=== PATIENT | female | born 1945 | race Caucasian/White ===

== ENCOUNTER → 2020-08-27 08:43 | Outpatient (REF) | payer MEDICARE, OTHER, SELFPAY | LOC: HO.CARD 08:43 | PROVIDERS: Visit Provider Internal Medicine | DX: Z13.89 Encounter for screening for other disorder (principal) ==

== ENCOUNTER → 2020-09-01 07:53 | Outpatient (REF) | payer MEDICARE, OTHER, SELFPAY ==
--- NOTE | 2020-09-01 | NM_ITS ---
Lexiscan Myocardial perfusion study Indication: Chest pain, history of coronary disease, assess for ischemia Technique: The patient was brought in for a Lexiscan perfusion study on 09/01/2020 and was injected 0.4 mg of Lexiscan intravenously. Within a minute of this injection 25 mCi of sestamibi was given intravenously. Images were obtained using the SPECT gamma camera interlaced with the gating device. Images were obtained in supine position. Resting perfusion study was performed on 09/02/2020. Patient was administered 25 mCi of sestamibi intravenously at rest. Images were then obtained in supine position. Total DLP 66mGy-cm. Images were processed with the software and compared side to side in short axis, horizontal long axis and vertical long axis views. Findings: Raw acquisition reviewed. There is intense subdiaphragmatic uptake in the liver as well as intestines. Seen during stress as well as rest. The stress perfusion study is of suboptimal quality due to adjacent subdiaphragmatic uptake. There seems to be diminished tracer uptake along the inferior wall which could be artifactual. There is also diminished tracer uptake in parts of the anterior wall and adjacent apex. EF calculation by gating seems inaccurate. LV cavity is normal in size. The gated study shows normal wall thickening and contraction of segments. Resting study shows slightly diminished tracer uptake along the apical part of inferior wall but otherwise unremarkable. With CT attenuation correction, there is some additional perfusion abnormality noted in the apex and apical anterior wall as well. Likely all artifactual. Gating at rest reveals normal wall motion with ejection fraction at 68%. Overall, due to adjacent subdiaphragmatic uptake, limited image quality. Defects noted are probably artifactual. NM/NM john perf SPECT rest & str Impression: 1. Myocardial perfusion imaging study is of suboptimal quality due to intense subdiaphragmatic uptake. Apparent reversible defect along the inferior wall as well as inferior septum, distal anterior wall could all be artifactual as the gating component shows normal contractility. Less likely to represent true ischemia. Clinically correlate. 2. Gated LVEF is 68% during rest. Gated EF during stress does not appear accurate. 3. Transient ischemic dilatation not present on visual evaluation. EKG component of the stress reported separately.
--- NOTE | 2020-09-01 08:00 | CA_ITS ---
Acquisition Time: 2020-09-01 08:02:49 Total Exercise Time: 00:02:00 Test Indications: Chest Pain Medications: METOPROLOL TRIAMTURINE/HCTZ SYNTHROID ROSUVASTATIN Protocol: LEXISCAN Max HR: 082 BPM 56% of Pred: 146 BPM Max BP: 122/064 mmHG Max Work Load: 1.0 METS Pharmacological stress test using Lexiscan while sitting. Pt. tolerated well, reports mild chest heaviness after lexiscan, that resolves in recovery. EKG with LBBB with v-pacing. non-diagnostic for ischemia. Nuclear images to follow. Normotensiver esponse to test. Test reviewed with Dr. Mahmood. Referred By: Natan Menjivar Overread By: Jese Moody
== END ==
LOC: HO.CARD 07:53
PROVIDERS: PCP Internal Medicine; Visit Provider Internal Medicine
DX: R07.9 Chest pain, unspecified (principal)
CPT/HCPCS: 78452; 93017; A9500; J0280; J2785

== ENCOUNTER → 2020-09-09 14:16 | Outpatient (BNVA) | payer MEDICARE, OTHER, SELFPAY | PROVIDERS: PCP Internal Medicine; Referring Provider Internal Medicine; Visit Provider Internal Medicine | DX: I25.10 Atherosclerotic heart disease of native coronary artery without angina pectoris (principal); R94.5 Abnormal results of liver function studies; R03.0 Elevated blood-pressure reading, without diagnosis of hypertension; Z79.02 Long term (current) use of antithrombotics/antiplatelets; Z95.0 Presence of cardiac pacemaker; Z95.5 Presence of coronary angioplasty implant and graft | CPT/HCPCS: 99212 ==

== ENCOUNTER → 2020-11-24 13:06 | Outpatient (BNVA) | payer MEDICARE, OTHER, SELFPAY | PROVIDERS: PCP Internal Medicine; Referring Provider Internal Medicine; Visit Provider Internal Medicine | DX: Z45.018 Encounter for adjustment and management of other part of cardiac pacemaker (principal); I25.10 Atherosclerotic heart disease of native coronary artery without angina pectoris; R94.5 Abnormal results of liver function studies; R03.0 Elevated blood-pressure reading, without diagnosis of hypertension | CPT/HCPCS: 99212 ==

== ENCOUNTER → 2021-06-30 12:53 | Outpatient (BNVA) | payer MEDICARE, OTHER, SELFPAY | PROVIDERS: PCP Internal Medicine; Referring Provider Internal Medicine; Visit Provider Internal Medicine | DX: Z45.018 Encounter for adjustment and management of other part of cardiac pacemaker (principal); I25.10 Atherosclerotic heart disease of native coronary artery without angina pectoris; I49.8 Other specified cardiac arrhythmias; R03.0 Elevated blood-pressure reading, without diagnosis of hypertension; R94.5 Abnormal results of liver function studies | CPT/HCPCS: 93005; 99212 ==

== ENCOUNTER 2021-09-22 14:05 | Outpatient (REF) | payer MEDICARE, OTHER, SELFPAY | END 2021-09-22 14:06 | disposition home or self-care (01) | LOC: HO.LAB 14:05 | PROVIDERS: PCP Internal Medicine; Visit Provider Internal Medicine | DX: Z20.822 Contact with and (suspected) exposure to COVID-19 (principal) | CPT/HCPCS: C9803; U0003; U0005 ==

== ENCOUNTER → 2022-02-22 13:56 | Outpatient (BNVA) | payer MEDICARE, OTHER, SELFPAY | PROVIDERS: PCP Internal Medicine; Referring Provider Internal Medicine; Visit Provider Internal Medicine | DX: I25.10 Atherosclerotic heart disease of native coronary artery without angina pectoris (principal); I49.8 Other specified cardiac arrhythmias; R94.5 Abnormal results of liver function studies; Z79.82 Long term (current) use of aspirin; Z79.899 Other long term (current) drug therapy; Z45.018 Encounter for adjustment and management of other part of cardiac pacemaker | CPT/HCPCS: 93280; 99212 ==

== ENCOUNTER 2022-05-25 14:17 | Emergency (ER) | payer MEDICARE, OTHER, SELFPAY ==
--- NOTE | ~2022-05-25 | CT_ITS ---
EXAMINATION: CT HEAD WITHOUT CONTRAST CT FACIAL BONES WITHOUT CONTRAST CT CERVICAL SPINE WITHOUT CONTRAST CLINICAL INFORMATION: Fall. Headache. Neck injury. COMPARISON: CT head, facial bones and cervical spine 12/27/2019 TECHNIQUE: Imaging was performed from the skull base to vertex without intravenous administration of contrast. In addition, helical noncontrast CT imaging was acquired through the cervical spine and facial bones and source images were reviewed along with axial reconstructions and sagittal and coronal MPRs. [This CT examination was performed using dose optimization techniques as appropriate, variously including the following: *Automated exposure control *Adjustment of mA and/or kV according to patient size (this includes techniques or standardized protocols for targeted exams where dose is matched to indication/reason for exam; i.e. extremities or head) *Use of iterative reconstruction technique] DLP: 1547 mGy-cm FINDINGS: HEAD: Small left frontal bone scalp hematoma. No skull fracture. No intracranial mass, hemorrhage, or midline shift is visualized. There is generalized global volume loss. There is moderate prominence of the ventricles and the sulci . There is mild hypodensity of the periventricular white matter due to chronic small vessel ischemic disease. There are vascular calcifications of the internal carotid arteries bilaterally. . No extra-axial collections are identified. FACIAL BONES: Comminuted fracture of the nasal bones bilateral. These are slightly displaced. No additional facial bone fracture. Orbits are intact. Retrobulbar structures are normal. Mandible and TMJ joints intact. Small volume of lobular mucosal thickening at the inferior left sphenoid sinus. The paranasal sinuses are otherwise normally aerated. The visualized portion of the mastoid air cells and middle ear cavities are normally aerated CERVICAL SPINE: There is no evidence of acute cervical spine fracture. Vertebral bodies remain normal in height. There is advanced multilevel degenerative spondylosis of disc height narrowing, endplate spurring and facet joint arthrosis. No pre- or paravertebral soft tissue abnormality is identified. Limited assessment of the lung apices is unremarkable. CT/CT cervical spine wo con IMPRESSION: 1. No acute intracranial abnormality. 2. Comminuted fractured nasal bones bilateral. 3. No acute abnormality CT cervical spine.
[2022-05-25 14:20] VITALS: BP 174/74; PULSE 79; RESP 18; TEMP 36.6; O2SAT 97; BMI 25.7
[2022-05-25 14:30] VITALS: BP 171/65; PULSE 75; RESP 18; TEMP 36.6; O2SAT 97
--- NOTE | 2022-05-25 14:53 | PC.NURSE ---
Pt came in with . She was out with her horses when she tripped over a rock and fell on her face. Pt is bleeding from the bridge of her nose and inside of her nose and small abrasion on the top of her forehead. Pt complains of not being able to breathe properly. Pt not on any blood thinners.
--- NOTE | 2022-05-25 15:24 | PC.NURSE ---
While going over assessment, Irem and I cleaned pt with sterile solution where blood from her nose had gotten on her arms and hands.
--- NOTE | 2022-05-25 15:46 | ED_ITS ---
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 Mahmood and abnormal LFTs presenting to the ED with her at bedside after she had a mechanical fall while walking her horses she reports she tripped and fell landing face forward on her face. Since then she has been having some forehead pain/swelling, epistaxis that is now resolved and some left-sided neck pain. She denies prolonged down time or loss of consciousness or being on any blood thinners. She reports that this was mechanical she did not have any symptoms prior to the fall. She denies any dizziness, change in vision, jaw pain, dental injury, neck stiffness, paresthesias, chest pain or injury, back pain or injury, any other extremity or injury, or any other symptoms complaints or concerns at this time. She reports that she is up-to-date on tetanus. 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 Fall witnessed: no Place fall occurred: other (outdoors) Loss of consciousness: none Prolonged down time: no Symptoms prior to fall: none Context: tripped/slipped Location of injury: head, face and neck Severity: moderate Quality: aching Associated symptoms (after fall): headache and other (and epistaxis) Related Data Home Medications Medication Instructions Recorded Confirmed aspirin 81 mg tablet,delayed 81 mg PO DAILY 09/09/20 02/22/22 release ergocalciferol (vitamin D2) 1,250 1,250 mcg PO QWEEK 09/09/20 02/22/22 mcg (50,000 unit) capsule lactobacillus combination no.8 3 3,000 mmu cells PO DAILY 09/09/20 02/22/22 billion cell capsule (Adult Probiotic) levothyroxine 112 mcg tablet 112 mcg PO DAILY 09/09/20 02/22/22 metoprolol succinate 25 mg 12.5 mg PO DAILY 09/09/20 02/22/22 tablet,extended release 24 hr multivitamin 1 tab PO DAILY 09/09/20 02/22/22 rosuvastatin 20 mg tablet 20 mg PO BEDTIME 09/09/20 02/22/22 triamterene 37.5 1 cap PO DAILY 09/09/20 02/22/22 mg-hydrochlorothiazide 25 mg capsule Previous Rx's Medication Instructions Recorded nitroglycerin 0.4 mg sublingual 0.4 mg sublingual Q5M PRN chest 02/22/22 tablet pain 30 days #30 tabs acetaminophen 500 mg tablet 1,000 mg PO QID PRN fever or pain 05/25/22 (Tylenol Extra Strength) #14 tabs oxycodone 5 mg tablet 5 mg PO Q6H PRN pain #14 tabs 05/25/22 Allergies Allergy/AdvReac Type Severity Reaction Status Date / Time latex Allergy Unknown UNK. Verified 05/25/22 14:20 Review of Systems Review of Systems: Constitutional : No Fever, No Chills ENT/Mouth : + epistaxis, No Ear Pain, No Hoarseness, No sore throat Eyes: No Eye Pain, No Swelling, No Redness, No Foreign Body Cardiovascular : No Chest Pain, No SOB Respiratory : No Cough, No Dyspnea Gastrointestinal : No Nausea, No Vomiting, No Diarrhea, No abdominal Pain Genitourinary : No Dysuria, No Hematuria Musculoskeletal : +facial bony pain, + neck pain, No back pain, No other joint pain, No Myalgias, No Joint Swelling Skin : No Skin lacerations, No rash Neuro : + headache, No Weakness, No Numbness, No Paresthesias, No Loss of Consciousness, No Dizziness Psych : No Anxiety/Panic, No Depression Heme/Lymph: no easy bruising, no Lymphadenopathy Endocrine : No Polyuria, No Polydipsia Yes all other systems are reviewed and are negative [facility] Past Medical History Attestation statement: The following information was validated with the patient. Source: old records reviewed, obtained from family and nursing notes reviewed Medical History Abnormal LFTs Atherosclerotic cardiovascular disease Heart block atrioventricular Normally functioning cardiac pacemaker present Surgical History History of permanent cardiac pacemaker placement (~2019) Family History Family History Father Rheumatic fever Mother History of coronary artery bypass graft x 3 History of pacemaker Congestive heart failure Social History Social History Patient Tobacco Use Status: Never used Tobacco Advance Directives: No Advance Directives Information Provided: Yes Physical Exam Vital Signs: Vital Signs: Last Vital Signs Temp 98.1 F 05/25/22 16:00 Pulse 66 05/25/22 16:00 Resp 16 05/25/22 16:00 BP 158/72 H 05/25/22 16:00 Pulse Ox 98 05/25/22 16:00 O2 Del Method 05/25/22 16:00 BMI result Body Mass Index 25.7 vital signs have been reviewed as normal and appeared to be correct. Blood pressure 174/74. Heart rate normal. Respiration rate normal. Temperature normal. Oxygen saturation normal. Appearance: Alert. Oriented X3. No acute distress. Head: Patient with moderate soft tissue swelling and ecchymosis and tenderness palpation to the forehead and the periorbital areas. With superficial abrasions to the forehead. Patient has moderate tenderness palpation to the nasal bone with soft tissue swelling and superficial abrasion. The rest of the external exam is within normal limits. No Rapp signs noted. No raccoon eyes noted Eyes: PERRLA. EOMI. Conjunctiva and sclera normal. Eyelids normal. ENT: EAC normal. TM's Normal. Patient has dried epistaxis to bilateral nares. no active bleeding. No septal hematoma noted. No hemotympanum noted. Pharynx normal. Uvula midline. Moist mucous membranes. No lesions/ulcerations or masses noted on the tongue. Normal voice. No trismus noted. No drooling noted. No muffled voice noted. Neck: Normal inspection. Neck supple. FROM. No adenopathy. Thyroid Normal. No tracheal deviation noted. No crepitus is noted. No meningeal signs. No neck mass noted. No signs of trauma noted. Patient mild tenderness palpation to bilateral paracervical musculature worse on the left side. No mid cervical tenderness step-offs or deformities noted. CVS: Normal heart rate and rhythm. Heart sound normal. Pulses normal throughout. No murmurs/rales/gallops. Respiratory: No respiratory distress. Painless inspiration. Breath sounds normal. No wheezes/rales/rhonchi noted. Chest nontender. No crepitus is noted. No signs of trauma noted. No accessory muscle usage noted or decreased air movement noted. No signs of trauma. Abdomen: Soft and nontender. Bowel sounds normal in all 4 quadrants. No distention noted. No organomegaly noted. No visible injury noted. Back: Full range of motion noted. Nontender. No signs of trauma. Patient neuro intact bilaterally and distally on all 4 extremities. Patient's reflexes intact bilaterally and distally on all 4 extremities. No rashes/lesion/induration/fluctuance or signs of infection noted. Skin: Skin warm and dry. Normal skin color. Normal skin turgor. No rashes/lesions/lacerations noted. Extremities: No lower extremity edema. No calf tenderness is noted. Extremities exhibit normal range of motion and nontender. Neuro: Oriented X 3. No motor deficit. No sensory deficit. Reflexes normal. Normal steady gait. No focal neuro deficits noted. CN's II-XII intact bilaterally? Vascular: + radial pulses/+ 2 distal pedal pulses/+2 dorsalis pedis b/l. Normal cap refill. No cyanosis noted to upper extremity nails and lower extremity toes nails. 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 Mahmood and abnormal LFTs presenting to the ED with her at bedside after she had a mechanical fall while walking her horses she reports she tripped and fell landing face forward on her face. Since then she has been having some forehead pain/swelling, epistaxis that is now resolved and some left-sided neck pain. She denies prolonged down time or loss of consciousness or being on any blood thinners. She reports that this was m echanical she did not have any symptoms prior to the fall. Patient up-to-date on tetanus. Plan: Will obtain a CT scan of brain/cervical spine and facial bones. Provide a Tylenol with codeine and re-evaluate Reevaluation(s) Reevaluation #1: - CT scan of brain revealed small left frontal scalp hematoma otherwise no other acute processes noted. CT scan of cervical spine within normal limits no acute processes noted only chronic changes. CT scan of facial bones revealed comminuted fracture of nasal bones bilaterally which are slightly displaced otherwise no other acute processes are noted. Therefore at this time will DC home with symptomatic treatment and referral to Dr. Cunha the ear nose and throat doctor and to return if any new or worsening symptoms and to follow up with PCP. Patient understands agrees with this plan. Time: 17:28 MDM - Fall Medical Records Attestation: I reviewed the patient's medical records. Imaging Data CT scan of brain/cervical spine/facial bones without contrast: Attestation: I personally reviewed and interpreted this imaging study as follows: Radiologist's impression: FINDINGS: HEAD: Small left frontal bone scalp hematoma. No skull fracture. No intracranial mass, hemorrhage, or midline shift is visualized. There is generalized global volume loss. There is moderate prominence of the ventricles and the sulci . There is mild hypodensity of the periventricular white matter due to chronic small vessel ischemic disease. There are vascular calcifications of the internal carotid arteries bilaterally. . No extra-axial collections are identified. FACIAL BONES: Comminuted fracture of the nasal bones bilateral. These are slightly displaced. No additional facial bone fracture. Orbits are intact. Retrobulbar structures are normal. Mandible and TMJ joints intact. Small volume of lobular mucosal thickening at the inferior left sphenoid sinus. The paranasal sinuses are otherwise normally aerated. The visualized portion of the mastoid air cells and middle ear cavities are normally aerated CERVICAL SPINE: There is no evidence of acute cervical spine fracture. Vertebral bodies remain normal in height. There is advanced multilevel degenerative spondylosis of disc height narrowing, endplate spurring and facet joint arthrosis. No pre- or paravertebral soft tissue abnormality is identified. Limited assessment of the lung apices is unremarkable. CT/CT facial bones wo con IMPRESSION: ? 1. No acute intracranial abnormality. 2. Comminuted fractured nasal bones bilateral. 3. No acute abnormality CT cervical spine. Discharge Plan Discharge Clinical Impression: Fall, Epistaxis, Facial injury, Closed fracture nasal bone Patient Disposition: Home, Self-Care Instructions: Nasal Fracture (ED), Nosebleed (ED) Prescriptions: New acetaminophen [Tylenol Extra Strength] 500 mg tablet 1,000 mg PO QID PRN (Reason: fever or pain) Qty: 14 0RF oxycodone 5 mg tablet 5 mg PO Q6H PRN (Reason: pain) Qty: 14 0RF Rx Instructions: Partial Fill upon patient request. No Action nitroglycerin 0.4 mg tablet, sublingual 0.4 mg sublingual Q5M PRN (Reason: chest pain) 30 Days Qty: 30 5RF Rx Instructions: do not exceed 3 doses per episode rosuvastatin 20 mg tablet 20 mg PO BEDTIME ergocalciferol (vitamin D2) 1,250 mcg (50,000 unit) capsule 1,250 mcg PO QWEEK metoprolol succinate 25 mg tablet extended release 24 hr 12.5 mg PO DAILY levothyroxine 112 mcg tablet 112 mcg PO DAILY triamterene-hydrochlorothiazid 37.5-25 mg capsule 1 cap PO DAILY aspirin 81 mg tablet,delayed release (DR/EC) 81 mg PO DAILY Adult Probiotic 3 billion cell capsule 3,000 mmu cells PO DAILY Rx Instructions: administer with a meal multivitamin Tablet 1 tab PO DAILY Referrals: Natan Menjivar MD [Primary Care Provider] - 5 days Chuy Patel [Physician] - 5 days (Call to make a follow-up appointment)
[2022-05-25 16:00] VITALS: BP 158/72; PULSE 66; RESP 16; TEMP 36.7; O2SAT 98
--- NOTE | 2022-05-25 16:27 | PC.NURSE ---
administered PRN med per MAR and according to patient with pain level of 6
== END 2022-05-25 17:50 | disposition home or self-care (01) ==
PROVIDERS: Emergency Provider Emergency Medicine; PCP Internal Medicine
DX: R04.0 Epistaxis (principal); S02.2XXA Fracture of nasal bones, initial encounter for closed fracture; W01.0XXA Fall on same level from slipping, tripping and stumbling without subsequent striking against object, initial encounter; S00.83XA Contusion of other part of head, initial encounter; Y93.K1 Activity, walking an animal; Y92.73 Farm field as the place of occurrence of the external cause; Y99.9 Unspecified external cause status
CPT/HCPCS: 70450; 70486; 72125; 99284

== ENCOUNTER 2022-06-03 15:54 | Outpatient (REF) | payer MEDICARE, OTHER, SELFPAY ==
--- NOTE | ~2022-06-03 | CT_ITS ---
EXAMINATION: CT HEAD WITHOUT CONTRAST CLINICAL INFORMATION: Headache after fall COMPARISON: Previous head CT most recent May 2022 TECHNIQUE: Contiguous axial imaging was performed from the skull base to vertex without intravenous administration of contrast. This CT examination was performed using dose optimization techniques as appropriate, variously including the following: *Automated exposure control *Adjustment of mA and/or kV according to patient size (this includes techniques or standardized protocols for targeted exams where dose is matched to indication/reason for exam; i.e. extremities or head) *Use of iterative reconstruction technique DLP: 717 mGy-cm FINDINGS: There is no evidence of an extra-axial collection. There is no evidence of intra-axial or extra-axial hemorrhage. The ventricles and extra-axial CSF spaces are appropriate. There is nonspecific periventricular white matter disease. There are small old bilateral basal ganglia lacunar infarcts that appear unchanged. No mass, mass effect or acute infarct is seen. There is evidence of atherosclerotic disease. No skull fracture is seen. There are bilateral nasal bone fractures that appear unchanged. Paranasal sinuses, mastoid air cells and middle ears are clear. CT/CT head/brain wo con IMPRESSION: No acute findings. Nonspecific periventricular white matter disease, old right basal ganglia lacunar infarcts and bilateral nasal bone fractures similar to previous exam.
== END 2022-06-03 15:55 | disposition home or self-care (01) ==
LOC: HO.CT 15:54
PROVIDERS: PCP Internal Medicine; Visit Provider Internal Medicine
DX: R51.9 Headache, unspecified (principal); Z91.81 History of falling
CPT/HCPCS: 70450

== ENCOUNTER → 2022-08-17 08:35 | Outpatient (REF) | payer MEDICARE, OTHER, SELFPAY ==
--- NOTE | 2022-08-17 08:38 | CA_ITS ---
Transthoracic Echocardiogram Patient (Last, First, Middle): Denice Pérez E Gender: Female Date of : 1945 Age: 77 Procedure Date: 08/17/2022 Procedure Type: Transthoracic Echocardiogram Location: OP Height: 162.56 cm Weight: 68.04 kg BSA: 1.73 m2 Heart Rate: bpm BP: 130 / 70 mmHg Administrative Specialist: TO Referring MD: Keegan Mahmood MD Symptoms: I25.10 - Atherosclerotic heart disease of [place] coronary... Study Quality: Fair Conclusions: - 1. Normal LV systolic function with impaired relaxation filling pattern 2. Mild mitral regurgitation 3. Normal RV systolic pressure 4. No gross pericardial effusion Findings Left Ventricle Normal left ventricular size, thickness, and systolic function. The visually estimated ejection fraction is between 60-65%. There is paradoxical septal motion consistent with a right ventricular pacemaker. Spectral Doppler is indicative of an impaired relaxation filling pattern. E/E prime ratio is between 8 and 15 consistent with indeterminate filling pressures. Right Ventricle Normal right ventricular cavity size and systolic function. There is a pacemaker wire seen in the right ventricle. Atria The left atrium is normal in size. There is no evidence of interatrial shunt. The right atrium is normal in size. A pacemaker wire is identified in the right atrium. Aortic Valve The aortic valve structure and function is likely normal. There is mild aortic valve stenosis. There is no aortic valve regurgitation. Mitral Valve There is mild anterior and posterior mitral leaflet thickening. There is trace mitral valve regurgitation. There is no mitral valve stenosis. Pulmonic Valve The pulmonic valve was not well visualized. Tricuspid Valve Likely normal tricuspid valve structure and function. There is trace tricuspid valve regurgitation. The right ventricular systolic pressure is normal. The right ventricular systolic pressure is 22 mmHg. Normal right atrial pressure. There is no evidence of pulmonary hypertension. Great Vessels All visible segments of the aorta are normal in size. The pulmonary artery was not well visualized. Venous The inferior vena cava is normal in size and collapses greater than 50% with inspiration. Pericardium/Pleural There is no evidence of pericardial effusion. Prior Study Comparison No significant change compared to prior study dated: 05/30/2019. Measurements 2D Linear Measurements IVSd: 1.13 0.6-0.9/0.6-1.0 cm LVIDd: 3.60 3.9-5.3/4.2-5.9 cm LVIDd Index: 2.08 2.4-3.2/2.2-3.1 cm/m2 LVIDs: 2.08 2.0-3.6 cm LVPWd: 1.15 0.7-1.1 cm LA Diam: 3.30 2.7-3.8/3.0-4.0 cm LAIDs Index: 1.91 1.5-2.3 cm/m2 LV Mass: 173.88 67-162/88-224 g LV Mass Index: 100.51 43-95/49-115 g/m2 LVOT Diam: 2.00 3.0+(-)1.3 cm 2D Systolic Function EF 4C: 62.20 >55% EF 2C: 61.70 >55% EF BiP: 62.10 >55% Mitral Valve MV Pk E: 0.40 MV PK A: 0.70 MV Decel Time: 244.00 E/A: 0.60 E'Lateral: 5.44 E'Medial: 4.90 E/E' Med: 8.20 E/E' Lat: 7.40 PHT: 72.00 MVA PHT: 3.06 Decel [place]: 1.65 Aortic Valve AoV Pk Stephon: 1.15 AoV Mn Stephon: 0.83 AoV VTI: 0.23 AoV Pk Grad: 5.00 Aov Mn Grad: 3.00 TIARRA Cont.VTI: 2.51 LVOT LVOT Pk Stephon: 0.80 LVOT Mn Stephon: 0.51 LVOT VTI: 0.18 LVOT Pk Grad: 3.00 LVOT Mn Grad: 1.00 LVOT Diam: 2.00 LVOT Area: 3.14 Diastolic Function MV Pk E: 0.40 MV Pk A: 0.70 E/A: 0.60 E'Medial: 4.90 E/E' Med: 8.20 E' Laterial: 5.44 E/E' Lat: 7.40 Right Ventricle TAPSE (mm): 23.20 TVS' Stephon: 13.30 Tricuspid Valve TR Pk Stephon: 2.19 TR Pk Grad: 19.00 RA Press: 3.00 RVSP: 22.00 Great Vessels Aorta Sinus of Valsalva: 3.38 2.0-3.5 cm Ao Asc: 3.10 2.1-3.4 cm Updated in Other Vendor System with Status of Final Raheem Amin MD electronically signed on 08/18/2022 3:58:29 PM with status of Final
== END ==
LOC: HO.CARD 08:35
PROVIDERS: PCP Internal Medicine; Visit Provider Internal Medicine
DX: I25.10 Atherosclerotic heart disease of native coronary artery without angina pectoris (principal)
CPT/HCPCS: 93306

== ENCOUNTER → 2022-08-30 11:33 | Outpatient (BNVA) | payer MEDICARE, OTHER, SELFPAY | PROVIDERS: PCP Internal Medicine; Visit Provider Internal Medicine | DX: Z45.018 Encounter for adjustment and management of other part of cardiac pacemaker (principal); I44.30 Unspecified atrioventricular block | CPT/HCPCS: 93280 ==

== ENCOUNTER → 2022-09-09 09:04 | Outpatient (BNVA) | payer MEDICARE, OTHER, SELFPAY | PROVIDERS: PCP Internal Medicine; Referring Provider Internal Medicine; Visit Provider Internal Medicine | DX: I25.10 Atherosclerotic heart disease of native coronary artery without angina pectoris (principal); I49.8 Other specified cardiac arrhythmias; I10 Essential (primary) hypertension; R94.5 Abnormal results of liver function studies | CPT/HCPCS: 93005; 99212 ==

== ENCOUNTER 2022-09-28 13:32 | Outpatient (REF) | payer MEDICARE, OTHER, SELFPAY ==
--- NOTE | ~2022-09-28 | CT_ITS ---
EXAMINATION: CT HEAD WITHOUT CONTRAST CT FACE WITHOUT CONTRAST CT CERVICAL SPINE WITHOUT CONTRAST. CLINICAL INFORMATION: Worsening nose pain. History of fall with headache. COMPARISON: CT scan of the head, face, and cervical spine 05/25/2022. CT head 06/03/2022. TECHNIQUE: Certified Recreational Therapist images were obtained. CT imaging of the head, face, and cervical spine was performed without contrast. Data was reformatted into multiplanar images at the acquisition station. This CT examination was performed using dose optimization techniques as appropriate, including one or more of the following: Automated exposure control, iterative reconstruction, and adjustment of technique factors (mA and/or kVp) according to patient size (this includes techniques or standardized protocols for targeted exams where dose is matched to indication/reason for exam). Fleischner Society criteria for the followup of incidental pulmonary nodules was implemented if appropriate. DLP: 1219 mGy-cm. FINDINGS: Head: There is no acute intracranial hemorrhage or abnormal extra-axial collection. No intracranial mass effect or midline shift. No hydrocephalus. Scattered nonspecific foci of hypoattenuation visualized within the periventricular white matter and basal ganglia that most likely represent a chronic manifestation of small vessel ischemia. Gregorio-white matter differentiation is otherwise preserved and there is no evidence of acute territorial infarct. The calvarium and skull base are intact. Mastoid air cells and middle ear cavities are well aerated. Face: There are healing nasal bone fractures. Soft tissue swelling has substantially improved. The zygomatic arches and pterygoid processes are intact. There is no mandibular fracture. The temporomandibular joints are unremarkable. Globes and extraocular muscles are symmetric. No abnormal retrobulbar hematoma or inflammation. Orbital apices are unremarkable. There is mild mucosal thickening with associated sclerotic mucoperiosteal changes within the sphenoid sinus. Otherwise no active paranasal sinus disease. The nasal septum deviates to the left. 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 There is mineralization of the transverse ligament and considerable thickening of the retrodental soft tissues causing AP narrowing of the canal the level of C1. Bridging bone fuses the vertebral segments at C2-C3 and C6-C7. There is slight anterolisthesis of C4 on C5, C5 on C6, and C6 on C7. Canal patency is not well assessed on this examination due to inherent limitations of CT without intrathecal contrast. There is at least mild canal stenosis at the level of C5-C6. There are varying degrees of neuroforaminal encroachment related to uncovertebral joint spurring and facet degenerative change at multiple levels. Soft tissues of the neck are unremarkable. Lung apices are clear. Grossly no pathologically enlarged cervical lymph nodes. CT/CT head/brain wo IV con IMPRESSION: Head: No acute intracranial hemorrhage. There are scattered chronic small vessel ischemic changes within the periventricular white matter and basal ganglia. No evidence of acute territorial infarct. Facial: There are healing nasal bone fractures. Soft tissue swelling has substantially improved. No acute facial fracture. Cervical Spine: No evidence of acute cervical spinal fracture. There is advanced multilevel degenerative spondylosis of the cervical spine with slight anterolisthesis of C4 on C5, C5 on C6, and C6 on C7. 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 There is thickening of the retrodental tissues causes flattening of the thecal sac the level of C1. Canal patency is not well assessed on this examination due to inherent limitations of CT without intrathecal contrast. There is at least mild canal stenosis at the level of C5-C6. If there are clinical symptoms of compressive myelopathy then a dedicated cervical spine MRI can be obtained for better anatomic characterization of the cord and canal.
== END 2022-09-28 13:33 | disposition home or self-care (01) ==
LOC: HO.CT 13:32
PROVIDERS: PCP Internal Medicine; Visit Provider Internal Medicine
DX: G50.1 Atypical facial pain (principal); M54.2 Cervicalgia; R51.9 Headache, unspecified
CPT/HCPCS: 70450; 70486; 72125

== ENCOUNTER 2022-12-23 10:54 | Outpatient (REF) | payer MEDICARE, OTHER, SELFPAY ==
--- NOTE | ~2022-12-23 | MR_ITS ---
EXAMINATION: MR BRAIN WITHOUT CONTRAST CLINICAL INFORMATION: Headache, status post trauma COMPARISON: CT head without contrast 09/28/2022 TECHNIQUE: Multiplanar multisequence MR imaging of the brain was obtained without intravenous contrast. FINDINGS: There is no acute infarct on diffusion-weighted imaging. There is no intracranial hemorrhage on iron-sensitive imaging. No extra-axial collection or mass effect/herniation. Scattered periventricular and deep white matter T2 FLAIR hyperintensities consistent with mild underlying microangiopathy. Chronic lacunar infarct along the right anterior limb of the internal capsule. No hydrocephalus. Mild generalized cerebral volume loss with commensurate sulcal and ventricular prominence. 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 The major flow voids at the skull base are preserved. The midline structures are normal. The cerebellar tonsils are normally positioned. The craniocervical junction is normal. Moderate to advanced degenerative changes of the upper cervical spine including arthrosis of the atlantodental interval and retrodental pannus which results in suspected moderate narrowing of the spinal canal at C1-C2. Marrow signal is within normal limits. The visualized soft tissues are without significant abnormality. No signal abnormality within the paranasal sinuses or within the mastoid air cells. MR/MR head/brain wo con IMPRESSION: 1. No acute intracranial abnormality. 2. Mild generalized volume loss and chronic microangiopathy 3. Incompletely evaluated moderate to advanced degenerative changes of the upper cervical spine including retrodental pannus which results in suspected moderate spinal canal stenosis at C1-C2.
== END 2022-12-23 10:55 | disposition home or self-care (01) ==
LOC: HO.MRI 10:54
PROVIDERS: PCP Internal Medicine; Visit Provider Internal Medicine
DX: F07.0 Personality change due to known physiological condition (principal)
CPT/HCPCS: 70551

== ENCOUNTER → 2023-02-21 12:35 | Outpatient (BNVA) | payer MEDICARE, OTHER, SELFPAY | PROVIDERS: PCP Internal Medicine; Referring Provider Internal Medicine; Visit Provider Internal Medicine | DX: Z45.018 Encounter for adjustment and management of other part of cardiac pacemaker (principal); I25.10 Atherosclerotic heart disease of native coronary artery without angina pectoris; I49.8 Other specified cardiac arrhythmias; I10 Essential (primary) hypertension; R94.5 Abnormal results of liver function studies | CPT/HCPCS: 93280; 99212 ==

== ENCOUNTER → 2023-05-02 23:59 | Outpatient (BNV) | payer MEDICARE, OTHER, SELFPAY ==
--- NOTE | 2023-05-04 14:02 | A.OFFVIS_ITS ---
Intake Intake Visit Reasons: Remote Device Check- [facility] Allergies latex Allergy (Unknown, Verified 02/21/23 12:57) UNK. 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 Normally functioning cardiac pacemaker present Surgical History History of permanent cardiac pacemaker placement (~2019) Family History Father Rheumatic fever Mother History of coronary artery bypass graft x 3 History of pacemaker Congestive heart failure Social History (Updated 02/21/23 @ 12:59 by Laura Green) Alcohol intake: current Alcohol intake frequency: holidays/special occasions only Patient Tobacco Use Status: Never used Tobacco Office Procedures Cardiac Device Check Cardiac Device Check Details: Date of service- 05/02/2023 ; Battery life >5 years; normal lead parameters; AP 15%; 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 Overall normal device function. [id number] Cardiac Device Interrogation, pacemaker Procedure code (CPT) selection complete Assessment & Plan Assessment & Plan (1) Heart block atrioventricular: Code(s): I44.30 - Unspecified atrioventricular block Coding Level of Care Code Procedure Only Diagnoses Heart block atrioventricular I44.30 CPT Codes Cardiac Device Check - Cardiac Device 12: [id number] Cardiac Device Interro gation, pacemaker ([id number])
== END ==
PROVIDERS: PCP Internal Medicine; Visit Provider Internal Medicine
DX: I44.30 Unspecified atrioventricular block (principal); Z95.0 Presence of cardiac pacemaker
CPT/HCPCS: 93294

== ENCOUNTER → 2023-08-01 23:59 | Outpatient (BNV) | payer MEDICARE, OTHER, SELFPAY ==
--- NOTE | 2023-08-03 08:44 | MHC.OFFVIS ---
Intake Intake Visit Reasons: Remote Device Check- [facility] Allergies latex Allergy (Unknown, Verified 02/21/23 12:57) UNK. [facility] Medical History Abnormal LFTs Atherosclerotic cardiovascular disease Heart block atrioventricular Normally functioning cardiac pacemaker present Surgical History History of permanent cardiac pacemaker placement (~2019) Family History Father Rheumatic fever Mother History of coronary artery bypass graft x 3 History of pacemaker Congestive heart failure Social History (Updated 02/21/23 @ 12:59 by Laura Green) Alcohol intake: current Alcohol intake frequency: holidays/special occasions only Patient Tobacco Use Status: Never used Tobacco Office Procedures Cardiac Device Check Cardiac Device Check Details: Date of service- 08/01/2023 ; Battery life >5 years; normal lead parameters; AP 21%; 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 Overall normal device function. [id number] Cardiac Device Interrogation, pacemaker Procedure code (CPT) selection complete Assessment & Plan Assessment & Plan (1) Heart block atrioventricular: Code(s): I44.30 - Unspecified atrioventricular block Coding Level of Care Code Procedure Only Diagnoses Heart block atrioventricular I44.30 CPT Codes Cardiac Device Check - Cardiac Device 12: [id number] Cardiac Device Interrogation, pacemaker ([id number])
== END ==
PROVIDERS: PCP Internal Medicine; Visit Provider Internal Medicine
DX: I44.30 Unspecified atrioventricular block (principal); Z95.0 Presence of cardiac pacemaker
CPT/HCPCS: 93294

== ENCOUNTER 2023-09-25 12:46 | Emergency (ER) | payer MEDICARE, OTHER, SELFPAY ==
[2023-09-25 13:07] VITALS: BP 155/62; PULSE 55; RESP 18; TEMP 36.6; O2SAT 98; BMI 26.9
--- NOTE | 2023-09-25 13:10 | ED_ITS ---
HPI - General Adult General Chief complaint: Animal Bite Stated complaint: Dog bite Time Seen by Provider: 09/25/23 13:20 Source: patient Mode of arrival: ambulatory Limitations: no limitations History of Present Illness HPI narrative: 78old female with pmh of HTN, heart block, pacemaker presents to the ED for dog bite to left arm by her dog she was playing. patient states her dog is uptodate with rabies vaccine. patient states bite is deep and keeps on bleeding Related Data Home Medications Medication Instructions Recorded Confirmed aspirin 81 mg tablet,delayed 81 mg PO DAILY 09/09/20 02/21/23 release ergocalciferol (vitamin D2) 1,250 1,250 mcg PO QWEEK 09/09/20 02/21/23 mcg (50,000 unit) capsule lactobacillus combination no.8 3 3,000 mmu cells PO DAILY 09/09/20 02/21/23 billion cell capsule (Adult Probiotic) levothyroxine 112 mcg tablet 112 mcg PO DAILY 09/09/20 02/21/23 metoprolol succinate 25 mg 12.5 mg PO DAILY 09/09/20 02/21/23 tablet,extended release 24 hr multivitamin 1 tab PO DAILY 09/09/20 02/21/23 rosuvastatin 20 mg tablet 20 mg PO BEDTIME 09/09/20 02/21/23 triamterene 37.5 1 cap PO DAILY 09/09/20 02/21/23 mg-hydrochlorothiazide 25 mg capsule Previous Rx's Medication Instructions Recorded nitroglycerin 0.4 mg sublingual 0.4 mg sublingual Q5M PRN chest 02/22/22 tablet pain 30 days #30 tabs acetaminophen 500 mg tablet 1,000 mg (2 x 500 mg) PO QID PRN 05/25/22 (Tylenol Extra Strength) fever or pain #14 tabs oxycodone 5 mg tablet 5 mg PO Q6H PRN pain #14 tabs 05/25/22 amoxicillin 875 mg-potassium 1 tab PO Q12H 10 days #20 tabs 09/25/23 clavulanate 125 mg tablet Allergies Allergy/AdvReac Type Severity Reaction Status Date / Time latex Allergy Unknown UNK. 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 Normally functioning cardiac pacemaker present Surgical History History of permanent cardiac pacemaker placement (~2019) Family History Family History Father Rheumatic fever Mother History of coronary artery bypass graft x 3 History of pacemaker Congestive heart failure Social History Social History (Updated 02/21/23 @ 12:59 by Laura Green) Alcohol intake: current Alcohol intake frequency: holidays/special occasions only Patient Tobacco Use Status: Never used Tobacco Advance Directives: No Advance Directives Information Provided: No Physical Exam ED Vital Signs: Vital Signs - 24 hr 09/25/23 13:07 Temperature 98 F Pulse Rate 55 Respiratory Rate 18 Blood Pressure 155/62 H Pulse Oximetry 98 Oxygen Delivery Method Room Air BMI result Body Mass Index 26.9 Const General: cooperative, healthy appearing, comfortable, no acute distress, well developed, alert and awake Orientation/consciousness: oriented to person, oriented to place, oriented to time and patient oriented x3 HENIA Head: Yes normal to inspection, Yes No palpable skull fracture present, Yes normocephalic and Yes atraumatic Eyes General: appearance normal, both eyes and all related structures Neck Neck: Yes normal visual inspection, Yes full ROM, Yes no lymphadenopathy, Yes no meningeal signs, Yes trachea midline, Yes supple, No anterior neck swelling and No tender Chest Chest palpation & inspection: normal inspection of the chest and normal palpation of entire chest wall Resp Effort & Inspection: normal respiratory effort and able to speak in complete sentences Auscultation: clear to auscultation bilaterally Cardio Jugular venous distension: no JVD Heart sounds: S1 normal heart sound present and S2 normal heart sound present GI Inspection: Yes normal to inspection Palpation (GI): Soft to palpation, not firm, nontender, no guarding and not rigid General: Yes no CVA tenderness Back/Spine/Pelvis Back: no CVA tenderness and No back tenderness Skin General skin exam: no rashes or lesions noted and elasticity normal Neuro General: oriented to person, oriented to place, oriented to time, patient oriented x3, gait normal, tone normal, moves all extremities, Normal light touch and pain sensation, no meningeal signs and no focal motor deficits Extrem General: Yes normal to inspection and Yes full ROM Shoulder/upper arm images: 2 1. positive for gaping deep hole from dog bite with active bleeding. motor/neuro/vascular exam of extremity is intact. Psych Appearance: grossly normal, well kempt and not disheveled Course Course Course Narrative: RME: 78 yold female with dog bite to arm by her dog who is uptodate with tetanus. Medications Administered Discontinued Medications Generic Name Dose Route Start Last Admin Trade Name Frefederico PRN Reason Stop Dose Admin Diphtheria/Tetanus/Acell Pertussis 0.5 ml 09/25/23 13:10 09/25/23 13:55 Diphth,Pertus(Acell),Tet Adult 0.5 Ml Syringe IM 09/25/23 13:11 0.5 ml .ONCE ONE Administration Lidocaine HCl 2 ml 09/25/23 13:37 09/25/23 13:57 Lidocaine Hcl 2% 2 Ml Vial INFILTRATI 09/25/23 13:38 2 ml ONCE ONE Administration Lidocaine HCl 2 ml 09/25/23 13:37 09/25/23 13:57 Lidocaine Hcl 2% 2 Ml Vial INFILTRATI 09/25/23 13:38 2 ml ONCE ONE Administration Lidocaine HCl 2 ml 09/25/23 13:37 09/25/23 13:57 Lidocaine Hcl 2% 2 Ml Vial INFILTRATI 09/25/23 13:38 2 ml ONCE ONE Administration Medical Decision Making Medical Decision Making MDM Narrative: 78 yold female with dog bite to posterior biceps. cleaned wound with sterile saline and beta iodine. 4 nylon. loose sutures placed. Sutures placed due to depth of gaping hole in arm. REst of extremity normal. patient started on antibiotics. No need for rabies shots. tdap ordered. Differential Diagnosis Differential Diagnoses: The differential diagnosis associated with the presentation includes (dog bite) External Record Review External record reviewed: Other (prior viist) Prescription Management I considered prescription management with: Antibiotic Discharge Plan Discharge Clinical Impression: Dog bite Patient Disposition: Home, Self-Care Instructions: Animal Bite (ED) Additional Instructions: Return to the ED immediately for any redness, swelling, pus discharge, foul odor, red streaks, fever, chills, or any other concerning symptsom. . Please be compliant with the antibiotics. Please follow-up with your primary care provider. Return to the ED in 10 days for suture removal. Prescriptions: New amoxicillin-pot clavulanate 875-125 mg tablet 1 tab PO Q12H 10 Days Qty: 20 0RF No Action acetaminophen [Tylenol Extra Strength] 500 mg tablet 1,000 mg PO QID PRN (Reason: fever or pain) Qty: 14 0RF oxycodone 5 mg tablet 5 mg PO Q6H PRN (Reason: pain) Qty: 14 0RF Rx Instructions: Partial Fill upon patient request. nitroglycerin 0.4 mg tablet, sublingual 0.4 mg sublingual Q5M PRN (Reason: chest pain) 30 Days Qty: 30 5RF Rx Instructions: do not exceed 3 doses per episode rosuvastatin 20 mg tablet 20 mg PO BEDTIME ergocalciferol (vitamin D2) 1,250 mcg (50,000 unit) capsule 1,250 mcg PO QWEEK metoprolol succinate 25 mg tablet extended release 24 hr 12.5 mg PO DAILY levothyroxine 112 mcg tablet 112 mcg PO DAILY triamterene-hydrochlorothiazid 37.5-25 mg capsule 1 cap PO DAILY aspirin 81 mg tablet,delayed release (DR/EC) 81 mg PO DAILY Adult Probiotic 3 billion cell capsule 3,000 mmu cells PO DAILY Rx Instructions: administer with a meal multivitamin Tablet 1 tab PO DAILY Interventions: ED Discharge Assessment Last Done: 09/25/23 15:08 Discharge Date/Time: 09/25/23 15:08 Print Language: Irish
[2023-09-25] MEDS: Diphth,Pertus(ACell),Tet Adult 0.5 ML SYRINGE IM (13:55)
== END 2023-09-25 15:08 | disposition home or self-care (01) ==
PROVIDERS: Emergency Provider Emergency Medicine; PCP Internal Medicine
DX: S41.152A Open bite of left upper arm, initial encounter (principal); W54.0XXA Bitten by dog, initial encounter; Y93.9 Activity, unspecified; Y92.9 Unspecified place or not applicable; Y99.9 Unspecified external cause status; Z23 Encounter for immunization
CPT/HCPCS: 12001; 90471; 90715; 99284

== ENCOUNTER 2023-09-29 14:37 | Outpatient (AMB) | payer MEDICARE, OTHER, SELFPAY ==
--- NOTE | 2023-09-29 14:41 | MHC.OFFVIS ---
Intake Vital Signs 09/29/23 14:44 Height 5 ft 4 in Weight 153 lb 0.013 oz BMI 26.3 BP 126/66 Blood Pressure Location Rt brachial Position Sitting Pulse 58 Intake Visit Reasons: 6 month follow up Intake Note: 6 month follow up w. EKG Lime Hide Inspector Required: No Accompanied by: Self / Same As Patient Allergies latex Allergy (Unknown, Verified 09/29/23 14:45) UNK. Medication List - Last Reconciled 09/29/23 by Keegan Mahmood MD acetaminophen (Tylenol Extra Strength) 1,000 mg (2 x 500 mg) PO QID PRN amoxicillin-pot clavulanate 875-125 mg 1 tab PO Q12H 10 days aspirin 81 mg PO DAILY ergocalciferol (vitamin D2) 1,250 mcg PO QWEEK lactobacillus combination no.8 (Adult Probiotic) 3,000 mmu cells PO DAILY levothyroxine 112 mcg PO DAILY metoprolol succinate ER 12.5 mg PO DAILY multivitamin 1 tab PO DAILY nitroglycerin 0.4 mg sublingual Q5M PRN 30 days rosuvastatin 20 mg PO BEDTIME triamterene-hydrochlorothiazid 37.5-25 mg 1 cap PO DAILY HPI HPI Comments History of Present Illness Details Denice returns for follow-up regarding coronary disease as well as her pacemaker. 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 Then underwent LAD stenting in 2019 following complaints of chest tightness. For the most part she is doing good. On 1 occasion, she had some chest discomfort, brief duration. Took sublingual nitroglycerin then resolved completely. Could be angina. Then no recurrence. Otherwise, able to do physical activity with no issues. Takes triamterene / HCTZ for edema. 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 Normally functioning cardiac pacemaker present Surgical History History of permanent cardiac pacemaker placement (~2019) Family History Father Rheumatic fever Mother History of coronary artery bypass graft x 3 History of pacemaker Congestive heart failure Social History Alcohol intake: current Alcohol intake frequency: holidays/special occasions only Patient Tobacco Use Status: Never used Tobacco Review of Systems Const Denies weakness ENT Denies dizziness Card Denies chest pain, Denies chest pain with activity, Denies syncope, Denies rapid heart rate, Denies pedal edema, Denies edema, Denies leg edema, Denies lightheadedness, Denies palpitations, Denies dyspnea, Denies dyspnea on exertion and Denies orthopnea Resp Denies cough, Denies dyspnea and Denies dyspnea on exertion GI Denies hematochezia and Denies change in stool character Musc Denies abnormal gait, Denies muscle cramps, Denies muscle weakness, Denies numbness, Denies radiating pain into limb and Denies tingling Neuro Denies abnormal gait, Denies dizziness, Denies syncope, Denies numbness, Denies tingling and Denies weakness Endo Denies palpitations Physical Exam Vital Signs: Last Vital Signs Pulse 58 09/29/23 14:44 BP 126/66 09/29/23 14:44 BMI result Body Mass Index 26.3 Const General: comfortable and no acute distress Orientation/consciousness: patient oriented x3 HEENT Other: Unremarkable Head: Yes normal to inspection Neck Neck: Yes normal visual inspection Chest Chest palpation & inspection: normal inspection of the chest Resp Auscultation: clear to auscultation bilaterally Cardio Palpation: normal PMI Heart sounds: S1 normal heart sound present, S2 normal heart sound present, no gallops, no murmurs and no rubs GI Palpation (GI): Soft to palpation Back/Spine/Pelvis Other: unremarkable Skin General skin exam: no rashes or lesions noted Neuro General: patient oriented x3 Extrem General: Yes normal to inspection Psych Mental Status: mental status grossly normal Office Procedures EKG Details: EKG with atrial sensed, ventricular paced rhythm at 58/Min. [id number], Complete Assessment & Plan Assessment & Plan (1) Atherosclerotic cardiovascular disease: Code(s): I25.10 - Atherosclerotic heart disease of [place] coronary artery without angina pectoris Plan: Status post LAD stenting. Very rare chest pains. She remains on aspirin, low-dose beta-blockers and statins. No changes. Last LDL 58 mg/dL. (2) Atrial arrhythmia: Code(s): I49.8 - Other specified cardiac arrhythmias Plan: Brief atrial fibrillation noted on pacemaker remote monitoring in the past for about 32 seconds. No recurrence. (3) Essential hypertension: Code(s): I10 - Essential (primary) hypertension Plan: Stable. No changes. Plan Total time spent including review of data, counseling, documentation, coordination of care-31 minutes. Coding Level of Care Code Est Pt Level 4 (69601) Diagnoses Atherosclerotic cardiovascular disease I25.10 Atrial arrhythmia I49.8 Essential hypertension I10 CPT Codes EKG - CPT: 66707-[id number], Complete ([id number])
[2023-09-29 14:44] VITALS: BP 126/66; PULSE 58; BMI 26.3
== END 2023-09-29 15:34 | disposition home or self-care (01) ==
PROVIDERS: PCP Internal Medicine; Visit Provider Internal Medicine
DX: I25.10 Atherosclerotic heart disease of native coronary artery without angina pectoris (principal); I49.8 Other specified cardiac arrhythmias; I10 Essential (primary) hypertension
CPT/HCPCS: 93010; 99214

== ENCOUNTER → 2023-09-29 14:37 | Outpatient (BNVA) | payer MEDICARE, OTHER, SELFPAY | PROVIDERS: PCP Internal Medicine; Visit Provider Internal Medicine | DX: I25.10 Atherosclerotic heart disease of native coronary artery without angina pectoris (principal); I49.8 Other specified cardiac arrhythmias; I10 Essential (primary) hypertension | CPT/HCPCS: 93005; 99212 ==

== ENCOUNTER → 2023-10-31 23:59 | Outpatient (BNV) | payer MEDICARE, OTHER, SELFPAY ==
--- NOTE | 2023-11-02 12:42 | MHC.OFFVIS ---
Intake Intake Visit Reasons: Remote Device Check- [facility] Allergies latex Allergy (Unknown, Verified 09/29/23 14:45) UNK. [facility] Medical History Abnormal LFTs Atherosclerotic cardiovascular disease Heart block atrioventricular Normally functioning cardiac pacemaker present Surgical History History of permanent cardiac pacemaker placement (~2019) Family History Father Rheumatic fever Mother History of coronary artery bypass graft x 3 History of pacemaker Congestive heart failure Social History Alcohol intake: current Alcohol intake frequency: holidays/special occasions only Patient Tobacco Use Status: Never used Tobacco Office Procedures Cardiac Device Check Cardiac Device Check Details: Date of service- 10/31/2023 ; Battery life >5 years; normal lead parameters; AP 26%; 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 Overall normal device function. [id number] Cardiac Device Interrogation, pacemaker Procedure code (CPT) selection complete Assessment & Plan Assessment & Plan (1) Heart block atrioventricular: Code(s): I44.30 - Unspecified atrioventricular block Plan x Coding Level of Care Code Procedure Only Diagnoses Heart block atrioventricular I44.30 CPT Codes Cardiac Device Check - Cardiac Device 12: [id number] Cardiac Device Interrogation, pacemaker ([id number])
== END ==
PROVIDERS: PCP Internal Medicine; Visit Provider Internal Medicine
DX: I44.30 Unspecified atrioventricular block (principal); Z95.0 Presence of cardiac pacemaker
CPT/HCPCS: 93294

== ENCOUNTER → 2024-01-30 23:59 | Outpatient (BNV) | payer MEDICARE, OTHER, SELFPAY ==
--- NOTE | 2024-02-06 18:33 | A.OFFVIS_ITS ---
Intake Intake Visit Reasons: Remote device check- [facility] Allergies latex Allergy (Unknown, Verified 09/29/23 14:45) UNK. [facility] Medical History Abnormal LFTs Atherosclerotic cardiovascular disease Heart block atrioventricular Normally functioning cardiac pacemaker present Surgical History History of permanent cardiac pacemaker placement (~2019) Family History Father Rheumatic fever Mother History of coronary artery bypass graft x 3 History of pacemaker Congestive heart failure Social History Alcohol intake: current Alcohol intake frequency: holidays/special occasions only Patient Tobacco Use Status: Never used Tobacco Office Procedures Cardiac Device Check Cardiac Device Check Details: Date of service- 01/30/2024 ; Battery life >5 years; normal lead parameters; AP 10%; 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 Overall normal device function. [id number] Cardiac Device Interrogation, pacemaker Procedure code (CPT) selection complete Assessment & Plan Assessment & Plan (1) Heart block atrioventricular: Code(s): I44.30 - Unspecified atrioventricular block Plan x Coding Level of Care Code Procedure Only Diagnoses Heart block atrioventricular I44.30 CPT Codes Cardiac Device Check - Cardiac Device 12: [id number] Cardiac Device Interrogation, pacemaker ([id number])
== END ==
PROVIDERS: PCP Internal Medicine; Visit Provider Internal Medicine
DX: I44.30 Unspecified atrioventricular block (principal); Z95.0 Presence of cardiac pacemaker
CPT/HCPCS: 93294

== ENCOUNTER 2024-04-23 13:34 | Outpatient (AMB) | payer MEDICARE, OTHER, SELFPAY ==
[2024-04-23 14:02] VITALS: BP 134/70; BMI 25.9
--- NOTE | 2024-04-23 14:02 | MHC.OFFVIS ---
Vital Signs 04/23/24 14:02 Height 5 ft 4 in Weight 151 lb BMI 25.9 BP 134/70 Blood Pressure Location Rt brachial Position Sitting Intake Visit Reasons: 6 mth fu w/ [facility] Allergies latex Allergy (Unknown, Verified 04/23/24 14:04) UNK. Medication List - Last Reconciled 04/23/24 by Keegna Mahmood MD aspirin 81 mg PO DAILY donepezil 5 mg PO DAILY ergocalciferol (vitamin D2) 1,250 mcg PO QWEEK lactobacillus combination no.8 (Adult Probiotic) 3,000 mmu cells PO DAILY metoprolol succinate ER 12.5 mg PO DAILY multivitamin 1 tab PO DAILY rosuvastatin 20 mg PO BEDTIME triamterene-hydrochlorothiazid 37.5-25 mg 1 cap PO DAILY HPI Comments Details: Denice returns for follow-up regarding coronary disease as well as her pacemaker. 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 Then underwent LAD stenting in 2019 following complaints of chest tightness. Overall, she feels good. No cardiac complaints whatsoever. Otherwise, she takes triamterene / HCTZ for edema. [facility] Medical History Abnormal LFTs Atherosclerotic cardiovascular disease Heart block atrioventricular Normally functioning cardiac pacemaker present Surgical History History of permanent cardiac pacemaker placement (~2019) Family History Father Rheumatic fever Mother History of coronary artery bypass graft x 3 History of pacemaker Congestive heart failure Social History Alcohol intake: current Alcohol intake frequency: holidays/special occasions only Patient Tobacco Use Status: Never used Tobacco Review of Systems Const All systems reviewed & are unremarkable except as noted in HPI and below Reports as per HPI and Reports no additional complaints Eyes Reports as per HPI and Denies no additional complaints ENT Denies no additional complaints and Reports as per HPI Card Reports as per HPI, Reports no additional complaints, Denies acrocyanosis, Denies chest pain, Denies leg edema, Denies lightheadedness, Denies palpitations and Denies dyspnea Resp Reports as per HPI, Denies no additional complaints and Denies dyspnea GI Reports as per HPI and Denies no additional complaints Reports as per HPI Musc Reports no additional complaints and Reports as per [facility] Skin/Breast Reports system reviewed and no additional complaints, except as documented Neuro Reports no additional complaints and Reports as per HPI Psych Reports no additional complaints and Reports as per HPI Endo Reports no additional complaints, Reports as per [facility] and Denies palpitations Aneesh/Lymph Reports no additional complaints and Reports as per HPI Aller/Immun Reports no additional complaints and Reports as per HPI Physical Exam Vital Signs: Last Vital Signs BP 134/70 04/23/24 14:02 BMI result Body Mass Index 25.9 Const General: comfortable and no acute distress Orientation/consciousness: patient oriented x3 HEENT Other: Unremarkable Head: Yes normal to inspection Neck Neck: Yes normal visual inspection Chest Chest palpation & inspection: normal inspection of the chest Resp Auscultation: clear to auscultation bilaterally Cardio Palpation: normal PMI Heart sounds: S1 normal heart sound present, S2 normal heart sound present, no gallops, no murmurs and no rubs GI Palpation (GI): Soft to palpation Back/Spine/Pelvis Other: unremarkable Skin General skin exam: no rashes or lesions noted Neuro General: patient oriented x3 Extrem Other: Trace edema General: Yes normal to inspection Psych Mental Status: mental status grossly normal Office Procedures Cardiac Device Check Cardiac Device Check Details: Pacemaker interrogated today. Dual-chamber device, programmed DDD. Battery status 4.7-5 years. Normal lead parameters. One mode switch for about 6 seconds, probably atrial tachycardia. Atrial pacing 25%. Ventricular pacing > 99%. Overall, normal pacemaker function. [id number] Cardiac Device Interrogation, pacemaker Procedure code (CPT) selection complete Assessment & Plan Assessment & Plan (1) Atherosclerotic cardiovascular disease: Code(s): I25.10 - Atherosclerotic heart disease of [place] coronary artery without angina pectoris Category: Medical Plan: Status post LAD stenting. She remains on aspirin, low-dose beta-blockers and statins. No changes. Last available LDL 58 mg/dL. (2) Atrial arrhythmia: Code(s): I49.8 - Other specified cardiac arrhythmias Category: Medical Plan: Brief atrial fibrillation noted on pacemaker remote monitoring in the past for about 32 seconds. No recurrence. May follow on remote pacemaker checkup. (3) Essential hypertension: Code(s): I10 - Essential (primary) hypertension Category: Medical Plan: Stable. No changes. Coding Level of Care Code Est Pt Level 4 (94211) Diagnoses Atherosclerotic cardiovascular disease I25.10 Atrial arrhythmia I49.8 Essential hypertension I10 CPT Codes Cardiac Device Check - Cardiac Device 12: [id number] Cardiac Device Interrogation, pacemaker ([id number])
== END 2024-04-23 14:36 | disposition home or self-care (01) ==
PROVIDERS: PCP Internal Medicine; Visit Provider Internal Medicine
DX: I25.10 Atherosclerotic heart disease of native coronary artery without angina pectoris (principal); I49.8 Other specified cardiac arrhythmias; I10 Essential (primary) hypertension; Z95.0 Presence of cardiac pacemaker
CPT/HCPCS: 93280; 99214

== ENCOUNTER → 2024-04-23 13:34 | Outpatient (BNVA) | payer MEDICARE, OTHER, SELFPAY | PROVIDERS: PCP Internal Medicine; Visit Provider Internal Medicine | DX: I25.10 Atherosclerotic heart disease of native coronary artery without angina pectoris (principal); I49.8 Other specified cardiac arrhythmias; I10 Essential (primary) hypertension; Z45.018 Encounter for adjustment and management of other part of cardiac pacemaker | CPT/HCPCS: 93280; 99212 ==

== ENCOUNTER 2024-04-28 14:58 | Emergency (ER) | payer MEDICARE, OTHER, SELFPAY ==
--- NOTE | ~2024-04-28 | CT_ITS ---
EXAMINATION: CT HEAD WITHOUT CONTRAST CT FACIAL BONES WITHOUT CONTRAST CLINICAL INFORMATION: Left-sided facial pain. No trauma. Left-sided headache. Selected images of the brain MRI of 12/23/2022. COMPARISON: CT head and facial bones 09/28/2022. Selected images of the brain MRI of 12/23/2022 TECHNIQUE: Contiguous axial images are obtained from the skull base to the vertex without intravenous contrast administration. Multidetector volumetric CT imaging of the cervical spine is acquired without intravenous contrast administration. Postprocessing is performed at a dedicated workstation. Multiplanar reformatted images are submitted. This CT scan was performed using dose optimization techniques as appropriate to a performed exam including the following: *Automated exposure control *Adjustment of mA and/or kV according to patient size (this includes techniques or standardized protocols for targeted exams were dose is matched to indication/reason for exam; i.e. extremities or head) *Use of iterative reconstruction technique. DLP: 837 mGy-cm (CT head and facial bones). FINDINGS: There is no evidence of acute intracranial hemorrhage, midline shift or mass effect. Gregorio to white matter differentiation is well preserved. No evidence of acute territorial edematous infarction. [id number] cerebral volume loss is again noted with proportionate dilatation of the ventricles and cortical sulci. Mild bilateral periventricular white matter patchy low-attenuation changes are similar to that seen on the previous study likely reflecting changes of chronic microangiopathy. No abnormal extra-axial fluid collection is seen. Calcific atherosclerosis of the internal carotid and vertebral arteries. The patient is status post right lens extraction. The osseous calvarium is intact. No evidence of significant calvarial soft tissue abnormality. Maxillary sinuses are clear. Mild to moderate opacification is noted in the somewhat hypoplastic left-sided sphenoid sinus. Mild mucosal thickening of the ethmoid air cells. Frontal sinuses are clear. Right mastoid air cells and right middle ear cavities are well-aerated. Opacification of the few of the inferior left mastoid air cells is noted. Left middle ear cavities are well-aerated. No acute osseous abnormality of the facial bones. Temporomandibular joint alignments are maintained. No significant arthritic changes are noted at the temporomandibular articulations. No suspicious lytic or blastic osseous lesions. Orbital rims and nasal bones are intact. Zygomatic arches are intact. Streaking artifacts from dental amalgam significantly limits evaluation of the surrounding structures. The right maxillary last molar tooth is not seen, recommend correlation with history of interval extraction. Otherwise there is no evidence of new periapical lucencies. Advanced degenerative changes at C1-C2 redemonstrated. CT/CT facial bones wo IV con IMPRESSION: No acute intracranial abnormality. No evidence of acute osseous abnormality in the facial bones. Opacification of few of the left inferior mastoid air cells representing mild effusion. Mild paranasal sinus disease overall does not appear to be significantly changed compared to previous CT scan of 09/28/2022.
[2024-04-28 15:01] VITALS: BP 146/90; PULSE 62; RESP 16; TEMP 37; O2SAT 96; BMI 25.7
--- NOTE | 2024-04-28 15:02 | ED_ITS ---
HPI - General Adult General Chief complaint: General Medical Stated complaint: left side face swollen,eye reddened, headache Time Seen by Provider: 04/28/24 16:32 Source: patient and family (patient's ) Mode of arrival: ambulatory Limitations: no limitations History of Present Illness ED Provider: Ping Gomez PA-C HPI narrative: Patient is a 79 year old assigned female at with a history of HTN and a pacemaker presenting to the emergency department today with left eye redness / pain and intermittent headaches that radiate into her jaw and face. Patient states that over the last few days she has been having left sided headache and face pain with a red and irritated left eye. Patient denies any dizziness, lightheadedness, abdominal pain, nausea, vomiting, fever, chills, blurry vision, double vision, loss of vision, chest pain, difficulty breathing, shortness of breath, back pain, night sweats, pain with urination, increased urinary frequency, increased urinary urgency, blood in her urine or stool, syncope or a near syncopal episode, recent trauma or falls, bowel incontinence, bladder incontinence, or any other complaints at this time. Onset (ago): day(s) Location: head, face, eyes and left Severity: mild Severity scale (1-10): 4 Quality: aching and dull Pain Consistency: intermittent Relieving factors: none Exacerbating factors: none Associated symptoms: denies other symptoms Treatments prior to arrival: none Related Data Home Medications ?Medication ?Instructions ?Recorded ?Confirmed aspirin 81 mg tablet,delayed 81 mg PO DAILY 09/09/20 04/23/24 release ergocalciferol (vitamin D2) 1,250 1,250 mcg PO QWEEK 09/09/20 04/23/24 mcg (50,000 unit) capsule lactobacillus combination no.8 3 3,000 mmu cells PO DAILY 09/09/20 04/23/24 billion cell capsule (Adult Probiotic) metoprolol succinate 25 mg 12.5 mg PO DAILY 09/09/20 04/23/24 tablet,extended release 24 hr multivitamin 1 tab PO DAILY 09/09/20 04/23/24 rosuvastatin 20 mg tablet 20 mg PO BEDTIME 09/09/20 04/23/24 triamterene 37.5 1 cap PO DAILY 09/09/20 04/23/24 mg-hydrochlorothiazide 25 mg capsule donepezil 5 mg tablet 5 mg PO DAILY 04/23/24 04/23/24 Previous Rx's ?Medication ?Instructions ?Recorded doxycycline hyclate 100 mg tablet 100 mg PO BID 7 days #14 tabs 04/28/24 Allergies Allergy/AdvReac Type Severity Reaction Status Date / Time latex Allergy Unknown UNK. Verified 04/28/24 15:01 Review of Systems 2 Constitutional: Constitutional: Reports no additional constitutional complaints, Denies chills, Denies fever(s) and Denies night sweats Eyes: Eyes: Reports no additional eye complaints, Denies blurry vision, Denies change in vision, Denies diplopia, Denies eye discharge, Denies loss of vision and Reports eye pain (left) Comments: redness of the left eye ENT: Denies dizziness Comments: left sided headache and jaw pain Cardiovascular: Cardiovascular: Reports no additional cardiovascular complaints, Denies chest pain, Denies lightheadedness, Denies Loss of Consciousness and Denies dyspnea Respiratory: Respiratory: Reports no additional respiratory complaints and Denies dyspnea Gastrointestinal: Gastrointestinal: Reports no additional gastrointestinal complaints, Denies abdominal pain, Denies melena, Denies hematochezia, Denies change in bowel habits and Denies change in stool character Genitourinary: Genitourinary: Denies hematuria, Denies urinary frequency, Denies dysuria, Denies urinary incontinence, Denies urinary hesitancy and Denies urinary urgency Musculoskeletal: Musculoskeletal: Reports no additional musculoskeletal complaints, Denies numbness and Denies tingling Neurologic: Denies dizziness, Denies loss of vision, Denies numbness and Denies tingling Psychiatric: Psychiatric: Reports no additional psychiatric complaints Endocrine: Endocrine: Reports no additional endocrine complaints Hematologic/Lymphatic: Hematologic/Lymphatic: Reports no additional hematologic/lymphatic complaints Allergic/Immunologic: Allergic/Immunologic: Reports no additional allergic/immunologic complaints PMFSH Past Medical History Attestation statement: The following information was validated with the patient. (patient's validated all information) Source: old records reviewed, obtained from family (patient's provided additional history and confirmed the history provided by the patient.) and nursing notes reviewed Medical History Heart block atrioventricular Abnormal LFTs Normally functioning cardiac pacemaker present Atherosclerotic cardiovascular disease Surgical History History of permanent cardiac pacemaker placement (~2019) Family History Family History Father Rheumatic fever Mother History of coronary artery bypass graft x 3 History of pacemaker Congestive heart failure Social History Social History Alcohol intake: current Alcohol intake frequency: holidays/special occasions only Patient Tobacco Use Status: Never used Tobacco Smoked in Last 30 Days: No Use of substances other than those prescribed or required for medical reasons: No Advance Directives: No Advance Directives Information Provided: No Do you have a plan to hurt others: No Plan Physical Exam ED Vital Signs: Vital Signs - 24 hr 04/28/24 15:01 04/28/24 17:21 04/28/24 17:25 Temperature 98.6 F 98.5 F 98.5 F Pulse Rate 62 60 60 Respiratory Rate 16 16 16 Blood Pressure 146/90 H 144/60 H 144/60 H Pulse Oximetry 96 97 97 Oxygen Delivery Method Room Air Room Air Room Air BMI result Body Mass Index 25.7 Const General: cooperative, no acute distress, alert and awake Nutritional Appearance: well nourished Orientation/consciousness: patient oriented x3 Limitations: no limitations HENCA Head: Yes normal to inspection and Yes atraumatic Ears: hearing grossly normal bilaterally and external ears normal General nose exam: Normal external nose present, no nasal discharge noted and no epistaxis Face and sinus: Yes normal facial exam, No abrasion and No laceration Mouth: Normal oral and palatal mucosa present, no drooling and no muffled voice Eyes Periorbital: periorbital findings normal Eyelids: Yes eyelids normal Conjunctivae: conjunctival abnormal left subconjunctival hemorrhage Pupils: Equal, round and reactive pupils present EOM: EOMs intact bilaterally Neck Neck: Yes normal visual inspection, Yes full ROM and Yes no lymphadenopathy Chest Chest palpation & inspection: normal inspection of the chest Resp Effort & Inspection: normal respiratory effort and able to speak in complete sentences GI Inspection: Yes normal to inspection Neuro General: patient oriented x3 and moves all extremities Cranial nerves: Yes Equal, round and reactive pupils present Cognition (Neuro): normal cognition Extrem General: Yes normal to inspection, Yes full ROM and Yes capillary refill normal Psych Appearance: grossly normal Mental Status: mental status grossly normal Affect: normal affect Attitude: cooperative Thought process: Normal thought process present Thought content: Normal thought content present Insight: Good insight present (Psych) Course Course Course Narrative: This is a Rapid Medical Examination (RME) performed by Samantha Hsu PA-C in triage. Full HPI, ROS, assessment and treatment plan per primary provider in the Main ED. 79 yo female hx of atrial arrhythmia cardiac pacemaker placed here for eval of left facial and eye pain x3 days, worsening today. admits to associated disoriented vision to left eye. no blurred vision or vision loss. reports left sided headache and jaw pain. no hx of headaches. admits to assoc weakness. + subconjunctival hemorrhage noted to nasal aspect of left eye. EOMs intact however there is pain elicited on upward motion of left eye. No entrapment. Maxillary sinuses nontender. Left EAC and TMs WNL. No palpable temporal artery. exam non focal. No slurred speech or facial droop. Plan: labs, ekg, ct facial bones/head Medications Administered Discontinued Medications Generic Name Dose Route Start Last Admin Trade Name Kuldipq PRN Reason Stop Dose Admin Acetaminophen 975 mg 04/28/24 16:33 04/28/24 16:37 Acetaminophen 325 Mg Tablet PO 04/28/24 16:34 975 mg ONCE ONE Administration Doxycycline Monohydrate 100 mg 04/28/24 17:07 04/28/24 17:20 Doxycycline Monohydrate 100 Mg Capsule PO 04/28/24 17:08 100 mg ONCE ONE Administration Medical Decision Making Medical Decision Making [facility] Narrative: Patient is a 79 year old assigned female at with a history of HTN and a pacemaker presenting to the emergency department today with a left sided headache, left eye pain, and left jaw pain. Patient's physical exam was as noted in the physical exam portion of this note. Patient's blood work was unremarkable. Patient's EKG was unremarkable. Patient's head and face CT showed left sided sinus disease but was otherwise unremarkable. Given the patient's presentation, there is a strong possibility an acute sinusitis is causing these symptoms. I explained my physical exam findings as well as all test results to the patient and the patient's . I answered all questions asked by the patient and the patient's . I stressed the importance of the patient taking her medication as directed (either prescribed or as the over the counter packaging recommends). I stressed the importance of the patient following up with her primary care provider. I stressed the importance of the patient returning to the emergency department immediately if her symptoms were to worsen or if she were to develop any dizziness, shortness of breath, difficulty breathing, chest pain, blurry vision, loss of vision, nausea, vomiting, abdominal pain, fever, chills, back pain, or any other complaints. Patient verbalized agreement and understanding with this treatment plan and discharge. Differential Diagnosis Differential Diagnoses: The differential diagnosis associated with the presentation includes Sinusitis Left conjunctival hemorrhage Admission/Observation Consideration of admission/observation: Escalation of care including admission/observation considered Patient would have been admitted to the hospital had her work up had any findings where hospital admission was appropriate and her clinical presentation warranted hospital admission. Lab Data [facility] Lab Attestation statement: I reviewed the patient's lab results. My interpretation of these results are in the [facility] Rationale portion of this note. 04/28/24 15:25 04/28/24 15:25 Labs: Lab Results 04/28/24 04/28/24 Range/Units 15:18 15:25 WBC 7.5 (4.8-10.8) X10*3/uL RBC 4.10 L (4.20-5.50) X10*6/uL Hgb 13.7 (12.0-16.0) g/dl Hct 39.5 (37.0-47.0) % MCV 96.3 (80.0-98.0) fL MCH 33.4 H (27.0-33.0) pg MCHC 34.7 (31.0-35.0) g/dl RDW 13.3 (11.0-16.0) % Plt Count 175 (160-400) X10*3/uL MPV 10.4 (9.4-12.3) fL Immature Gran % (Auto) 0.3 (0.0-0.4) % Neut % (Auto) 58.1 (45-73) % Lymph % (Auto) 32.3 (20-40) % [place] % (Auto) 7.4 (2-11) % Eos % (Auto) 1.1 (0-4) % Baso % (Auto) 0.8 (0-2) % Lymph # (Auto) 2.4 (1.2-4.9) X10*3/uL [place] # (Auto) 0.6 (0.1-1.2) X10*3/uL Eos # (Auto) 0.1 (0.0-0.4) X10*3/uL Baso # (Auto) 0.1 (0.0-0.2) X10*3/uL Abs Immat Gran (auto) 0.02 (0.00-0.03) X10*3/uL Absolute Neuts (auto) 4.4 (2.0-8.3) x10*3/uL Absolute Nucleated RBC 0.000 (0.0-0.012) X10*3/uL Nucleated RBC % (auto) 0.0 (0.0-0.2) /100WBC ESR 6 (0-20) MM/HR PT 12.1 (11.1-13.3) SEC INR 1.0 (0.9-1.1) Sodium 139 (135-145) mmol/L Potassium 3.8 (3.3-5.1) mmol/L Chloride 108 (96-108) mmol/L Carbon Dioxide 25 (22-29) mmol/L Anion Gap 10 L (12-20) BUN 15 (9-16) mg/dL Creatinine 0.82 (0.5-1.4) mg/dL Estim Creat Clear Calc 53.6 Estimated GFR > 60 Random Glucose 103 (60-115) mg/dL Calcium 9.2 (8.4-10.2) mg/dL Magnesium 2.2 (1.6-2.6) mg/dL Total Bilirubin 0.5 (0.0-1.0) mg/dL AST 25 (5-31) U/L ALT 16 (0-31) U/L Alkaline Phosphatase 86 (39-117) U/L C-Reactive Protein 0.13 (< or = 0.50) mg/dL Total Protein 6.9 (6.5-8.0) g/dL Albumin 3.9 (3.5-5.0) g/dL Influenza Type A (PCR) NEGATIVE (Negative) Influenza Type B (PCR) NEGATIVE (Negative) RSV RNA Qual (PCR) NEGATIVE (Negative) SARS-CoV-2 RNA (RT-PCR) NEGATIVE (Negative) Independent Interpretation I performed an independent interpretation of an: EKG and CT Scan Interpretation: My interpretation is in agreement with the radiologist's impression of these imaging studies. - EXAMINATION: CT HEAD WITHOUT CONTRAST CT FACIAL BONES WITHOUT CONTRAST CLINICAL INFORMATION: Left-sided facial pain. No trauma. Left-sided headache. Selected images of the brain MRI of 12/23/2022. COMPARISON: CT head and facial bones 09/28/2022. Selected images of the brain MRI of 12/23/2022 TECHNIQUE: Contiguous axial images are obtained from the skull base to the vertex without intravenous contrast administration. Multidetector volumetric CT imaging of the cervical spine is acquired without intravenous contrast administration. Postprocessing is performed at a dedicated workstation. Multiplanar reformatted images are submitted. This CT scan was performed using dose optimization techniques as appropriate to a performed exam including the following: *Automated exposure control *Adjustment of mA and/or kV according to patient size (this includes techniques or standardized protocols for targeted exams were dose is matched to indication/reason for exam; i.e. extremities or head) *Use of iterative reconstruction technique. DLP: 837 mGy-cm (CT head and facial bones). FINDINGS: There is no evidence of acute intracranial hemorrhage, midline shift or mass effect. Gregorio to white matter differentiation is well preserved. No evidence of acute territorial edematous infarction. [id number] cerebral volume loss is again noted with proportionate dilatation of the ventricles and cortical sulci. Mild bilateral periventricular white matter patchy low-attenuation changes are similar to that seen on the previous study likely reflecting changes of chronic microangiopathy. No abnormal extra-axial fluid collection is seen. Calcific atherosclerosis of the internal carotid and vertebral arteries. The patient is status post right lens extraction. The osseous calvarium is intact. No evidence of significant calvarial soft tissue abnormality. Maxillary sinuses are clear. Mild to moderate opacification is noted in the somewhat hypoplastic left-sided sphenoid sinus. Mild mucosal thickening of the ethmoid air cells. Frontal sinuses are clear. Right mastoid air cells and right middle ear cavities are well-aerated. Opacification of the few of the inferior left mastoid air cells is noted. Left middle ear cavities are well-aerated. No acute osseous abnormality of the facial bones. Temporomandibular joint alignments are maintained. No significant arthritic changes are noted at the temporomandibular articulations. No suspicious lytic or blastic osseous lesions. Orbital rims and nasal bones are intact. Zygomatic arches are intact. Streaking artifacts from dental amalgam significantly limits evaluation of the surrounding structures. The right maxillary last molar tooth is not seen, recommend correlation with history of interval extraction. Otherwise there is no evidence of new periapical lucencies. Advanced degenerative changes at C1-C2 redemonstrated. CT/CT head/brain wo IV con IMPRESSION: No acute intracranial abnormality. No evidence of acute osseous abnormality in the facial bones. Opacification of few of the left inferior mastoid air cells representing mild effusion. Mild paranasal sinus disease overall does not appear to be significantly changed compared to previous CT scan of 09/28/2022. Dictated By: Prashanth Pressley MD Signed By: Electronically signed by Prashanth Pressley MD 04/28/24 1620 - Vent. Rate: 060 BPM Atrial Rate: 060 BPM P-R Int: 196 ms QRS Dur: 162 ms QT Int: 472 ms P-R-T Axes: 082 -82 089 degrees QTc Int: 472 ms AV dual-paced rhythm Abnormal ECG When compared with ECG of 27-OCT-2018 14:21, Previous ECG has undetermined rhythm, needs review Electronically Signed By:KEEGAN SILVA Dictated By: Keegan Silva MD Signed By: Electronically signed by Keegan Silva MD 04/29/24 1034 Radiology Impression Discussion of test interpretation with radiology: I have reviewed the radiologist's reading. Independent Historian Clinical information obtained from an independent historian. History obtained from or confirmed by: Spouse (patient's provided additional history and confirmed the history provided by the patient.) Prescription Management I considered prescription management with: Antibiotic (patient prescribed an antibiotic for sinusitis) Discharge Plan Discharge Clinical Impression: Sinusitis, JB (subconjunctival hemorrhage) Patient Disposition: Home, Self-Care Instructions: Sinusitis (ED), Subconjunctival Hemorrhage (ED) Additional Instructions: Take your antibiotic as prescribed. Follow up with your primary care provider. Return to the emergency department immediately if your symptoms worsen or if you develop any dizziness, shortness of breath, difficulty breathing, chest pain, blurry vision, loss of vision, nausea, vomiting, abdominal pain, fever, chills, back pain, or any other complaints. Prescriptions: New doxycycline hyclate 100 mg tablet 100 mg PO BID 7 Days Qty: 14 0RF No Action rosuvastatin 20 mg tablet 20 mg PO BEDTIME ergocalciferol (vitamin D2) 1,250 mcg (50,000 unit) capsule 1,250 mcg PO QWEEK metoprolol succinate 25 mg tablet extended release 24 hr 12.5 mg PO DAILY triamterene-hydrochlorothiazid 37.5-25 mg capsule 1 cap PO DAILY aspirin 81 mg tablet,delayed release (DR/EC) 81 mg PO DAILY Adult Probiotic 3 billion cell capsule 3,000 mmu cells PO DAILY Rx Instructions: administer with a meal multivitamin Tablet 1 tab PO DAILY donepezil 5 mg tablet 5 mg PO DAILY Referrals: Natan Menjivar MD [Primary Care Provider] - Interventions: ED Discharge Assessment Last Done: 04/28/24 17:25 Discharge Date/Time: 04/28/24 17:25 Print Language: Turkmen
--- NOTE | 2024-04-28 15:05 | ECG_ITS ---
Test Reason : FACIAL NUMBNESS Blood Pressure : / mmHG Vent. Rate : 060 BPM Atrial Rate : 060 BPM P-R Int : 196 ms QRS Dur : 162 ms QT Int : 472 ms P-R-T Axes : 082 -82 089 degrees QTc Int : 472 ms AV dual-paced rhythm Abnormal ECG When compared with ECG of 27-OCT-2018 14:21, Previous ECG has undetermined rhythm, needs review Referred By: La Hsu Electronically Signed By:ELIO SILVA
[2024-04-28 15:30] LABS: MANUAL DIFF FLAG NO
[2024-04-28 15:42] LABS: Basophils Absolute Auto 0.1 X10*3/uL (0.0-0.2); Basophils Percent Auto 0.8 % (0-2); Eosinophils Absolute Auto 0.1 X10*3/uL (0.0-0.4); Eosinophils Percent Auto 1.1 % (0-4); Hematocrit 39.5 % (37.0-47.0); Hemoglobin 13.7 g/dl (12.0-16.0); Imm Gran Abs Auto 0.02 X10*3/uL (0.00-0.03); Imm Gran Pct Auto 0.3 % (0.0-0.4); Lymphocytes Absolute Auto 2.4 X10*3/uL (1.2-4.9); Lymphocytes Percent Auto 32.3 % (20-40); Mean Corpuscular HGB Conc 34.7 g/dl (31.0-35.0); Mean Corpuscular Hemoglobin 33.4 pg (27.0-33.0); Mean Corpuscular Volume 96.3 fL (80.0-98.0); Mean Platelet Volume 10.4 fL (9.4-12.3); Monocytes Absolute Auto 0.6 X10*3/uL (0.1-1.2); Monocytes Percent Auto 7.4 % (2-11); Neutrophils Absolute Auto 4.4 x10*3/uL (2.0-8.3); Neutrophils Percent Auto 58.1 % (45-73); Platelet Count 175 X10*3/uL (160-400); Red Cell Distribution Width 13.3 % (11.0-16.0); White Blood Count 7.5 X10*3/uL (4.8-10.8)
[2024-04-28 15:47] LABS: Prothrombin Time 12.1 SEC (11.1-13.3)
[2024-04-28 16:05] LABS: Alanine Aminotransferase 16 U/L (0-31); Albumin Level 3.9 g/dL (3.5-5.0); Alkaline Phosphatase 86 U/L (39-117); Anion Gap 10 (12-20); Aspartate Amino Transferase 25 U/L (5-31); Bilirubin Total 0.5 mg/dL (0.0-1.0); Blood Urea Nitrogen 15 mg/dL (9-16); C Reactive Protein 0.13 mg/dL (< or = 0.50); Calcium 9.2 mg/dL (8.4-10.2); Carbon Dioxide 25 mmol/L (22-29); Chloride 108 mmol/L (96-108); Creatinine Clr Calc Pharmacy 53.6; Estimated Glomerular Filt Rate > 60; Glucose Random 103 mg/dL (60-115); Magnesium 2.2 mg/dL (1.6-2.6); Potassium 3.8 mmol/L (3.3-5.1); Sodium 139 mmol/L (135-145); Total Protein 6.9 g/dL (6.5-8.0)
[2024-04-28 16:33] LABS: Erythrocyte Sedimentation Rate 6 MM/HR (0-20)
[2024-04-28 16:37] LABS: Influenza A PCR NEGATIVE (Negative); Influenza B PCR NEGATIVE (Negative); Resp Syncy Virus RNA Qual PCR NEGATIVE (Negative); SARS COV2 PCR INHOUSE NEGATIVE (Negative)
[2024-04-28] MEDS: Acetaminophen 325 MG TABLET 975 MG PO (16:37)
[2024-04-28] MEDS: Doxycycline Monohydrate 100 MG CAPSULE PO (17:20)
[2024-04-28 17:21] VITALS: BP 144/60; PULSE 60; RESP 16; TEMP 36.9; O2SAT 97
[2024-04-28 17:25] VITALS: BP 144/60; PULSE 60; RESP 16; TEMP 36.9; O2SAT 97
== END 2024-04-28 17:25 | disposition home or self-care (01) ==
PROVIDERS: Physician Assistant Medical; Emergency Provider Emergency Medicine Emergency Medical Services; PCP Internal Medicine
DX: J32.0 Chronic maxillary sinusitis (principal); H11.32 Conjunctival hemorrhage, left eye; Z03.818 Encounter for observation for suspected exposure to other biological agents ruled out; H57.12 Ocular pain, left eye; R51.9 Headache, unspecified; R20.0 Anesthesia of skin; I10 Essential (primary) hypertension; I44.30 Unspecified atrioventricular block; Z95.0 Presence of cardiac pacemaker; Z79.02 Long term (current) use of antithrombotics/antiplatelets; Z79.899 Other long term (current) drug therapy
CPT/HCPCS: 0241U; 36415; 70450; 70486; 80053; 83735; 85025; 85610; 85652; 86140; 93005; 99284; 99285

== ENCOUNTER → 2024-04-28 15:05 | Outpatient (BNV) | payer MEDICARE, OTHER, SELFPAY | PROVIDERS: Emergency Provider Emergency Medicine Emergency Medical Services; PCP Internal Medicine; Visit Provider Internal Medicine | DX: R94.31 Abnormal electrocardiogram [ECG] [EKG] (principal) | CPT/HCPCS: 93010 ==

== ENCOUNTER → 2024-04-30 23:59 | Outpatient (BNV) | payer MEDICARE, OTHER, SELFPAY ==
--- NOTE | 2024-05-10 14:01 | A.OFFVIS_ITS ---
Intake Visit Reasons: Remote device check- [facility] Allergies latex Allergy (Unknown, Verified 04/28/24 15:01) UNK. PFSH Medical History Heart block atrioventricular Abnormal LFTs Normally functioning cardiac pacemaker present Atherosclerotic cardiovascular disease Surgical History History of permanent cardiac pacemaker placement (~2019) Family History Father Rheumatic fever Mother History of coronary artery bypass graft x 3 History of pacemaker Congestive heart failure Social History Alcohol intake: current Alcohol intake frequency: holidays/special occasions only Patient Tobacco Use Status: Never used Tobacco Smoked in Last 30 Days: No Use of substances other than those prescribed or required for medical reasons: No Advance Directives: No Advance Directives Information Provided: No Do you have a plan to hurt others: No Plan Office Procedures Cardiac Device Check Cardiac Device Check Details: Date of service- 04/30/2024 ; Battery life >4 years; normal lead parameters; AP 33%; [employer] >99%; no significant arrhythmias. Overall normal device function. [id number] Cardiac Device Interrogation, pacemaker Procedure code (CPT) selection complete Assessment & Plan Assessment & Plan (1) Heart block atrioventricular: Code(s): I44.30 - Unspecified atrioventricular block Category: Medical Plan x Coding Level of Care Code Procedure Only Diagnoses Heart block atrioventricular I44.30 CPT Codes Cardiac Device Check - Cardiac Device 12: [id number] Cardiac Device Interrogation, pacemaker ([id number])
== END ==
PROVIDERS: PCP Internal Medicine; Visit Provider Internal Medicine
DX: I44.30 Unspecified atrioventricular block (principal); Z95.0 Presence of cardiac pacemaker
CPT/HCPCS: 93294

== ENCOUNTER 2024-05-22 10:17 | Outpatient (REF) | payer MEDICARE, OTHER, SELFPAY ==
--- NOTE | ~2024-05-22 | MR_ITS ---
EXAMINATION: MR CERVICAL SPINE WITHOUT CONTRAST CLINICAL INFORMATION: 79-year-old with intervertebral disc degeneration. COMPARISON: 09/28/2022 CT TECHNIQUE: MRI of the cervical spine was obtained using routine sequences without contrast. FINDINGS: ALIGNMENT: There is mild anterolisthesis at C4-C5 stable in appearance. There is trace anterolisthesis at C6-C7 and mild anterolisthesis at C7-T1. Mild anterolisthesis at T1-T2 and T2-T3 as well, all unchanged from previous exam. CRANIOCERVICAL JUNCTION/C1-C2 ARTICULATIONS: Mild stable retrolisthesis at the atlanto-occipital joints bilaterally, with arthritic changes at both joint spaces without joint effusions. The C1-C2 articulations are grossly intact and aligned. Osteoarthritic degenerative changes are seen at the anterior atlantodental joint similar to prior CT, with degenerative thickening of the retrodental ligaments, with probable calcification, as seen on previous CT. There is flattening of the ventral thecal sac without cord impingement at the craniocervical junction related to this with associated mild canal stenosis at this level above the level of the C2-C3 intervertebral disc space at the level of the dens. VISUALIZED INTRACRANIAL STRUCTURES: Generalized volume loss. No acute process. VERTEBRAL BODIES: Vertebral body heights are well-maintained stable in appearance. DISC SPACES AND ENDPLATES: Moderate to severe intervertebral disc space height loss at C5-C6 with intradiscal degenerative signal changes, Schmorl's nodes and spondylosis. Severe disc space height loss at C6-C7 with partial ankylosis at this level and intradiscal loss of T2-weighted signal with anterior marginal spondylosis similar to prior CT. Moderate to marked disc volume loss noted at T1-T2 and T2-T3 with disc desiccation and mild spondylosis. BONE MARROW: No suspicious marrow-replacing process or bone marrow edema. There is type I degenerative marrow signal change seen along the endplates at C5-C6. There are degenerative cystic changes in the dens likely reflecting arthritic change, similar in appearance to the previous CT with multiple subchondral cysts again noted with enthesopathic cysts at the dental tip. C2-C3: Small central disc osteophyte complex with minimal encroachment on the ventral thecal sac without cord impingement or significant canal stenosis. There is facet joint hypertrophic change bilaterally, left more than right with bilateral facet joint ankylosis similar to prior CT. There is mild foraminal narrowing on the left unchanged. C3-C4: Posterior disc osteophyte complex noted with flattening of the ventral dural sac without cord impingement. Ligamentum flavum thickening is noted with mild-moderate spinal canal stenosis. Marked facet joint hypertrophic degenerative change noted bilaterally with bilateral uncovertebral spurring, with moderate to severe right-sided and severe left-sided neural foraminal stenosis. C4-C5: Shallow central disc protrusion with mild indentation of the ventral thecal sac without cord impingement. Ligamentum flavum thickening is noted with mild central canal stenosis. There is moderate to severe facet joint hypertrophic degenerative change right more than left with uncovertebral spurring, with severe right-sided and mild left-sided neural foraminal stenosis. C5-C6: Broad-based disc osteophyte complex noted, with effacement of the ventral dural sac. Slight ventral cord deformity is noted, likely chronic, with ligamentum flavum thickening and moderate central spinal canal stenosis. There is uncovertebral arthrosis bilaterally and moderate to severe facet joint arthropathy, right more than left, with severe bilateral neural foraminal stenosis. C6-C7: Broad-based posterior disc osteophyte complex and mild unroofing of the posterior disc margin, with moderate flattening of the ventral dural sac without cord impingement/deformity. No significant canal stenosis. Uncovertebral arthrosis noted bilaterally, with [id number] facet joint hypertrophic changes, with bilateral facet joint ankylosis similar to prior CT, with mild-moderate right and mild left-sided neural foraminal stenosis. C7-T1: Slight unroofing of the posterior disc margin similar to prior CT with mild flattening of the ventral dural sac without cord impingement. Ligamentum flavum thickening is noted without significant canal stenosis. There is facet joint arthropathy noted bilaterally with mild foraminal narrowing bilaterally. There are bilateral perineural cysts in the neural foramina, left more than right. T1-T2: Unroofing of the posterior disc margin similar to prior CT with ligamentum flavum thickening and disc osteophyte complex, with moderate central spinal canal stenosis without cord impingement. There is extensive bilateral facet joint arthrosis, with severe bilateral craniocaudal neural foraminal stenosis. At the levels between T2-T3 and T4-T5 inclusive, there is facet joint arthropathy bilaterally with moderate to marked degrees of neural foraminal stenosis. SPINAL CORD: The cervical and visualized upper thoracic spinal cord is normal in signal intensity throughout when allowing for artifacts on the STIR sequence. No definite focal lesion, edema or syrinx. EXTRACRANIAL SOFT TISSUES: The visualized extracranial head/neck soft tissues are unremarkable within the limitations of the study. No prevertebral soft tissue edema. Signal voids are seen within the visualized major neck vessels. MR/MR cervical spine wo con IMPRESSION: 1. Advanced multilevel DJD and spondylosis, with multilevel bilateral DJD throughout the cervical and visualized upper thoracic spine, similar in appearance to the prior CT within the limitations of the comparison. 2. Multilevel mild, mild-moderate and moderate degrees of spinal canal stenosis, most apparent at C5-C6 with mild ventral cord deformity at this level and to a lesser degree at T1-T2. 3. Multilevel extensive bilateral neural foraminal stenosis largely similar to the previous CT as detailed by level above. 4. Arthritic changes involving the craniocervical junction and atlantodental joint as detailed above similar to prior CT. Electronically signed by: Sang Borja MD 06/20/2024 02:33 PM EDT
== END 2024-05-22 10:18 | disposition home or self-care (01) ==
LOC: HO.MRI 10:17
PROVIDERS: PCP Internal Medicine; Visit Provider Internal Medicine
DX: M50.30 Other cervical disc degeneration, unspecified cervical region (principal)
CPT/HCPCS: 72141

== ENCOUNTER → 2024-07-30 23:59 | Outpatient (BNV) | payer MEDICARE, OTHER, SELFPAY ==
--- NOTE | 2024-07-31 12:45 | MHC.OFFVIS ---
Intake Visit Reasons: Remote device check- [facility] Allergies latex Allergy (Unknown, Verified 04/28/24 15:01) UNK. PFSH Medical History Heart block atrioventricular Abnormal LFTs Normally functioning cardiac pacemaker present Atherosclerotic cardiovascular disease Surgical History History of permanent cardiac pacemaker placement (~2019) Family History Father Rheumatic fever Mother History of coronary artery bypass graft x 3 History of pacemaker Congestive heart failure Social History Alcohol intake: current Alcohol intake frequency: holidays/special occasions only Patient Tobacco Use Status: Never used Tobacco Office Procedures Cardiac Device Check Cardiac Device Check Details: Date of service- 07/30/2024 ; Battery life >4 years; normal lead parameters; AP 28%; [employer] >99%; brief atrial tachycardia episode; otherwise no significant arrhythmias. Overall normal device function. [id number] Cardiac Device Interrogation, pacemaker Procedure code (CPT) selection complete Assessment & Plan Assessment & Plan (1) Normally functioning cardiac pacemaker present: Code(s): Z95.0 - Presence of cardiac pacemaker Category: Medical (2) Heart block atrioventricular: Code(s): I44.30 - Unspecified atrioventricular block Category: Medical Plan x Coding Level of Care Code Procedure Only Diagnoses Normally functioning cardiac pacemaker present Z95.0 Heart block atrioventricular I44.30 CPT Codes Cardiac Device Check - Cardiac Device 12: [id number] Cardiac Device Interrogation, pacemaker ([id number])
== END ==
PROVIDERS: PCP Internal Medicine; Visit Provider Internal Medicine
DX: I44.30 Unspecified atrioventricular block (principal); Z95.0 Presence of cardiac pacemaker
CPT/HCPCS: 93294

== ENCOUNTER 2024-09-11 09:48 | Outpatient (RCR) | payer MEDICARE, OTHER, SELFPAY | END 2024-09-11 11:01 | disposition home or self-care (01) | LOC: HO.PT 09:48 | PROVIDERS: PCP Internal Medicine; Visit Provider Physical Medicine & Rehabilitation | DX: M54.2 Cervicalgia (principal) | CPT/HCPCS: 97110; 97140; 97162 ==

== ENCOUNTER → 2024-10-29 23:59 | Outpatient (BNV) | payer MEDICARE, OTHER, SELFPAY ==
--- NOTE | 2024-11-04 15:10 | A.OFFVIS_ITS ---
Intake Visit Reasons: Remote device check- [facility] Allergies latex Allergy (Unknown, Verified 04/28/24 15:01) UNK. PFSH Medical History Heart block atrioventricular Abnormal LFTs Normally functioning cardiac pacemaker present Atherosclerotic cardiovascular disease Surgical History History of permanent cardiac pacemaker placement (~2019) Family History Father Rheumatic fever Mother History of coronary artery bypass graft x 3 History of pacemaker Congestive heart failure Social History Alcohol intake: current Alcohol intake frequency: holidays/special occasions only Patient Tobacco Use Status: Never used Tobacco Office Procedures Cardiac Device Check Cardiac Device Check Details: Date of service- 10/29/2024 ; Battery life 4.2years; normal lead parameters; AP 17%; [employer] >99%; no significant arrhythmias. Overall normal device function. [id number] Cardiac Device Interrogation, pacemaker Procedure code (CPT) selection complete Assessment & Plan Assessment & Plan (1) Normally functioning cardiac pacemaker present: Code(s): Z95.0 - Presence of cardiac pacemaker Category: Medical (2) Heart block atrioventricular: Code(s): I44.30 - Unspecified atrioventricular block Category: Medical (3) Atrial arrhythmia: Code(s): I49.8 - Other specified cardiac arrhythmias Category: Medical Plan x Coding Level of Care Code Procedure Only Diagnoses Normally functioning cardiac pacemaker present Z95.0 Heart block atrioventricular I44.30 Atrial arrhythmia I49.8 CPT Codes Cardiac Device Check - Cardiac Device 12: [id number] Cardiac Device Interrogation, pacemaker ([id number])
== END ==
PROVIDERS: PCP Internal Medicine; Visit Provider Internal Medicine
DX: I44.30 Unspecified atrioventricular block (principal); I49.8 Other specified cardiac arrhythmias; Z95.0 Presence of cardiac pacemaker
CPT/HCPCS: 93294

== ENCOUNTER 2024-10-31 12:51 | Outpatient (AMB) | payer MEDICARE, OTHER, SELFPAY ==
[2024-10-31 12:58] VITALS: BP 118/68; PULSE 68
--- NOTE | 2024-10-31 12:58 | MHC.OFFVIS ---
Vital Signs 10/31/24 12:58 Height 5 ft 4 in BMI Reason not done Patient refused/unable BP 118/68 Blood Pressure Location Lt brachial Position Sitting Pulse 68 Pulse Source Pulse Oximeter Intake Visit Reasons: 6 mth f/up Allergies latex Allergy (Unknown, Verified 04/28/24 15:01) UNK. Medication List - Last Reconciled 10/31/24 by Keegan Mahmood MD aspirin 81 mg PO DAILY donepezil 5 mg PO DAILY ergocalciferol (vitamin D2) 1,250 mcg PO QWEEK lactobacillus combination no.8 (Adult Probiotic) 3,000 mmu cells PO DAILY metoprolol succinate ER 12.5 mg PO DAILY multivitamin 1 tab PO DAILY rosuvastatin 20 mg PO BEDTIME triamterene-hydrochlorothiazid 37.5-25 mg 1 cap PO DAILY HPI Comments Details: Denice returns for follow-up regarding coronary disease as well as her pacemaker. 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 Then underwent LAD stenting in 2019 following complaints of chest tightness. Otherwise, she takes triamterene / HCTZ for edema. Since last seen, she states she feels good. No cardiac complaints whatsoever. FOR[facility]LY [facility], [facility] Medical History Heart block atrioventricular Abnormal LFTs Normally functioning cardiac pacemaker present Atherosclerotic cardiovascular disease Surgical History History of permanent cardiac pacemaker placement (~2019) Family History Father Rheumatic fever Mother History of coronary artery bypass graft x 3 History of pacemaker Congestive heart failure Social History Alcohol intake: current Alcohol intake frequency: holidays/special occasions only Patient Tobacco Use Status: Never used Tobacco Review of Systems Const Denies weakness ENT Denies dizziness Card Denies chest pain, Denies chest pain with activity, Denies syncope, Denies rapid heart rate, Denies pedal edema, Denies edema, Denies leg edema, Denies lightheadedness, Denies palpitations, Denies dyspnea, Denies dyspnea on exertion and Denies orthopnea Resp Denies cough, Denies dyspnea and Denies dyspnea on exertion GI Denies hematochezia and Denies change in stool character Musc Denies abnormal gait, Denies muscle cramps, Denies muscle weakness, Denies numbness, Denies radiating pain into limb and Denies tingling Neuro Denies abnormal gait, Denies dizziness, Denies syncope, Denies numbness, Denies tingling and Denies weakness Endo Denies palpitations Physical Exam Vital Signs: Last Vital Signs Pulse 68 10/31/24 12:58 BP 118/68 10/31/24 12:58 Const General: comfortable and no acute distress Orientation/consciousness: patient oriented x3 HEENT Other: Unremarkable Head: Yes normal to inspection Neck Neck: Yes normal visual inspection Chest Chest palpation & inspection: normal inspection of the chest Resp Auscultation: clear to auscultation bilaterally Cardio Palpation: normal PMI Heart sounds: S1 normal heart sound present, S2 normal heart sound present, no gallops, no murmurs and no rubs GI Palpation (GI): Soft to palpation Back/Spine/Pelvis Other: unremarkable Skin General skin exam: no rashes or lesions noted Neuro General: patient oriented x3 Extrem General: Yes normal to inspection Psych Mental Status: mental status grossly normal Assessment & Plan Assessment & Plan (1) Atherosclerotic cardiovascular disease: Code(s): I25.10 - Atherosclerotic heart disease of [place] coronary artery without angina pectoris Category: Medical Plan: Status post LAD stenting. She remains on aspirin, low-dose beta-blockers and statins. No changes. Last available LDL 58 mg/dL. We will request more recent labs. (2) Atrial arrhythmia: Code(s): I49.8 - Other specified cardiac arrhythmias Category: Medical Plan: Brief atrial fibrillation noted on pacemaker remote monitoring in the past for about 32 seconds. No recurrence. May follow on remote pacemaker checkup. (3) Essential hypertension: Code(s): I10 - Essential (primary) hypertension Category: Medical Plan: Stable. No changes. Coding Level of Care Code Est Pt Level 4 (65625) Diagnoses Atherosclerotic cardiovascular disease I25.10 Atrial arrhythmia I49.8 Essential hypertension I10
== END 2024-10-31 13:30 | disposition home or self-care (01) ==
PROVIDERS: PCP Internal Medicine; Visit Provider Internal Medicine
DX: I25.10 Atherosclerotic heart disease of native coronary artery without angina pectoris (principal); I49.8 Other specified cardiac arrhythmias; I10 Essential (primary) hypertension
CPT/HCPCS: 99214

== ENCOUNTER → 2024-10-31 12:51 | Outpatient (BNVA) | payer MEDICARE, OTHER, SELFPAY | PROVIDERS: PCP Internal Medicine; Visit Provider Internal Medicine | DX: I25.10 Atherosclerotic heart disease of native coronary artery without angina pectoris (principal); I49.8 Other specified cardiac arrhythmias; I10 Essential (primary) hypertension | CPT/HCPCS: 99212 ==

== ENCOUNTER 2024-12-17 12:07 | Emergency (ER) | payer MEDICARE, OTHER, SELFPAY ==
--- NOTE | ~2024-12-17 | CT_ITS ---
EXAMINATION: CTA NECK WITH CONTRAST (STROKE) CTA BRAIN WITH CONTRAST (STROKE) CLINICAL INFORMATION: Headache. COMPARISON: Correlated to CT dated April 28, 2024 MRI brain dated December 23, 2022. TECHNIQUE: CT brain: Induced axial images through the brain from the skull base to the vertex using 3 mm collimation. Sagittal and coronal reformatted images acquired. CTA of the head and neck was performed in the axial plane from the mediastinum to the skull vertex using 70 mL Omnipaque 350 intravenous contrast. Additional reformatted multiplanar images including maximum intensity projection MIP images are generated on the CT workstation. No reported immediate complications. This CT examination was performed using dose optimization techniques as appropriate, variously including the following: *Automated exposure control *Adjustment of mA and/or kV according to patient size (this includes techniques or standardized protocols for targeted exams where dose is matched to indication/reason for exam; i.e. extremities or head) *Use of iterative reconstruction technique DLP: 1435 mGy centimeter. FINDINGS: The degree of stenosis determined by criteria similar to NASCET. Brain: No acute intracranial hemorrhage, mass effect, midline shift, hydrocephalus or herniation. Gregorio-white matter differentiation is normal. Posterior cranial fossa contents demonstrated no acute intracranial hemorrhage or mass effect. Sellar/suprasellar region demonstrated no acute intracranial hemorrhage. Craniocervical junction is intact demonstrated a partially calcified pannus formation in the periodontal region. Chest CTA: Calcified plaques in the aortic arch wall. Normal diameter. No focal stenosis. No intimal flap. Electrode leads in the left supraclavicular notch and a metallic reservoir in the anterior left upper chest wall. Neck CTA: Right CCA: Tortuosity. Normal patency. No focal stenosis. No intimal flap. Right ICA: Irregular mixed plaques Focal narrowing at the proximal segment representing 80% stenosis. No intimal flap. Left CCA: Normal patency. No focal stenosis. No intimal flap. Left ICA: Irregular mixed plaque. Focal 70% stenosis in the proximal segment. No intimal flap. Tortuosity. V1/V2 segments of the vertebral arteries are patent and origin in from the superior arteries with tortuosity. Left vertebral artery is dominant. No focal stenosis. No intimal flap.. Brain CTA: Anterior cerebral circulation: ICAs: Calcified plaques in the cavernous segments both ICA. No focal stenosis. No abrupt cut off. No gross irregularity in the contour. MCA's: No focal stenosis. No abrupt cut off. Bifurcation/trifurcation demonstrated no contour irregularity. ACAs: No focal stenosis. No abrupt cut off. Anterior communicating artery is patent. Ophthalmic arteries are patent. Unable to evaluate the origin secondary to bony artifact. Right posterior communicating artery is patent with small caliber. Left posterior communicating artery is not identified. Posterior cerebral circulation: V3/V4 segments demonstrated calcified plaques in the left side. No focal stenosis. No intimal flap. Left vertebral artery is dominant. Right vertebral artery ends in the right posterior inferior cerebellar artery. Basilar artery demonstrates normal patency without focal stenosis or intimal flap. Superior cerebellar arteries are patent. litigator: No focal stenosis or abrupt cut off. Ancillary findings: Multilevel cervical spondylosis more conspicuous at C5-6 and C6-[address]/CT angio head neck IMPRESSION: Irregular shaped mixed plaques representing 80% stenosis, right ICA. Irregularly-shaped mixed plaques representing 70% stenosis, left ICA. No dissection. No main cerebral artery occlusion or embolus or aneurysm. Electronically signed by: Mookie Walsh MD 12/17/2024 03:07 PM [facility]
[2024-12-17 12:22] VITALS: BP 150/80; PULSE 60; O2SAT 99
[2024-12-17 12:29] VITALS: BP 137/71; PULSE 60; RESP 15; TEMP 36.4; O2SAT 99; BMI 25.5
[2024-12-17 12:35] VITALS: BP 137/71; PULSE 60; RESP 15; TEMP 36.4; O2SAT 99
--- NOTE | 2024-12-17 12:37 | PC.NURSE ---
Pt. states no visual changes, but when she closes her eyes, she sees a red curtain .
--- NOTE | 2024-12-17 12:50 | ED.HA ---
HPI - Headache General Chief Complaint: Headache Stated Complaint: ULRICH,NAUSEA,-THINNERS,-INJURY PER EMS Time Seen by Provider: 12/17/24 12:49 Source: patient and RN notes reviewed Mode of arrival: ambulatory Limitations: no limitations History of Present Illness ED Provider: Gricelda Braden PA-C HPI Narrative: This is a 79-year-old female, with a past medical history of hypertension, atherosclerotic cardiovascular disease, hypothyroidism, atrial fibrillation and pacemaker placement in 2019, who presents emergency room via EMS with complaints of headaches for the last month. Patient states that today's headache as the worst it has been. States pain is localized to the left druze, and headache is relieved with applying pressure with her left side. No history of stroke. She is not on anticoagulation. Patient denies any recent head injury. MD elicited complaint: headache Severity: mild Quality & Timing: aching Exacerbating factors: none Relieving factors: nothing Associated symptoms: nausea Treatments prior to arrival: none Related Data Home Medications ?Medication ?Instructions ?Recorded ?Confirmed ergocalciferol (vitamin D2) 1,250 1,250 mcg PO QWEEK 09/09/20 10/31/24 mcg (50,000 unit) capsule lactobacillus combination no.8 3 3,000 mmu cells PO DAILY 09/09/20 10/31/24 billion cell capsule (Adult Probiotic) metoprolol succinate 25 mg 12.5 mg PO DAILY 09/09/20 10/31/24 tablet,extended release 24 hr multivitamin 1 tab PO DAILY 09/09/20 10/31/24 rosuvastatin 20 mg tablet 20 mg PO BEDTIME 09/09/20 10/31/24 triamterene 37.5 1 cap PO DAILY 09/09/20 10/31/24 mg-hydrochlorothiazide 25 mg capsule donepezil 5 mg tablet 5 mg PO DAILY 04/23/24 10/31/24 aspirin 81 mg tablet,delayed 81 mg PO DAILY 10/31/24 10/31/24 release levothyroxine 112 mcg tablet mcg PO DAILY 12/18/24 (Synthroid) memantine 10 mg tablet mg PO BID 12/18/24 sertraline 50 mg tablet mg PO DAILY 12/18/24 Allergies Allergy/AdvReac Type Severity Reaction Status Date / Time latex Allergy Unknown UNK. Verified 12/18/24 13:46 Review of Systems Review of Systems: Yes all other systems are reviewed and are negative Constitutional: Constitutional: Reports as per [facility] Past Medical History Medical History Heart block atrioventricular Abnormal LFTs Normally functioning cardiac pacemaker present Atherosclerotic cardiovascular disease Surgical History History of permanent cardiac pacemaker placement (~2019) Family History Family History Father Rheumatic fever Mother History of coronary artery bypass graft x 3 History of pacemaker Congestive heart failure Social History Social History Alcohol intake: current Alcohol intake frequency: holidays/special occasions only Patient Tobacco Use Status: Never used Tobacco Physical Exam Vital Signs: Vital Signs: Last Vital Signs Temp 99.2 F 12/17/24 17:10 Pulse 60 12/17/24 17:10 Resp 19 12/17/24 17:10 BP 116/83 12/17/24 17:10 Pulse Ox 96 12/17/24 17:10 O2 Del Method Room Air 12/17/24 17:10 BMI result Body Mass Index 25.5 Const: General: cooperative, comfortable and no acute distress Orientation/consciousness: patient oriented x3 Limitations: no limitations HEENT: Head: Yes normal to inspection, Yes normocephalic and Yes atraumatic Ears: hearing grossly normal bilaterally General nose exam: Normal external nose present Face and sinus: Yes normal facial exam Mouth: Normal oral and palatal mucosa present, oropharynx normal and moist mucous membranes Throat: Yes posterior oropharynx normal Eyes: General: appearance normal, both eyes and all related structures Eyelids: Yes eyelids normal Conjunctivae: conjunctivae normal Sclerae: sclerae normal Pupils: Equal, round and reactive pupils present EOM: EOMs intact bilaterally Neck: Neck: Yes normal visual inspection, Yes full ROM and Yes no lymphadenopathy Lymphatic: no lymphadenopathy noted Chest: Chest palpation & inspection: normal inspection of the chest Resp: Effort & Inspection: normal respiratory effort and able to speak in complete sentences Auscultation: clear to auscultation bilaterally, no crackles, no rales, no rhonchi and no wheezes Cardio: Rate: regular rate Rhythm: regular rhythm Heart sounds: S1 normal heart sound present and S2 normal heart sound present GI: Inspection: Yes normal to inspection Skin: General skin exam: no rashes or lesions noted Trauma: no lacerations or abrasions Wounds: no wounds Neuro: General: patient oriented x3 and moves all extremities Cranial nerves: Yes CN's II-XII intact bilaterally and Yes Equal, round and reactive pupils present Cognition (Neuro): normal cognition Gait exam (Neuro): Normal gait present Motor exam (neuro): 5/5 motor strength present throughout and Pronator motor function not present Coordination: spurms-of-kbwl test normal and jhan-sh-ifao test normal Romberg Test: Negative Extrem: General: Yes normal to inspection Right upper extremity: normal to inspection Left upper extremity: normal to inspection Right lower extremity: normal to inspection Left lower extremity: normal to inspection NIH Stroke Scale Internal: Initial- Upon Arrival Level of Consciousness: Alert Level of Consciousness Questions: Answers both questions correctly Level of Consciousness Commands: Performs both tasks correctly Best Gaze: Normal Visual: No visual loss Facial Palsy: Normal Motor Arm (Right): No drift Motor Arm (Left): No drift Motor Leg (Right): No drift Motor Leg (Left): No drift Limb Ataxia: Absent Sensory: Normal Best Language: No aphasia Dysarthia: Normal Extinction and Inattention: No abnormality Score: 0 Course Reevaluation(s) Reevaluation #1: Patient reporting she was feeling much better after receiving IV Tylenol. She does still report a 3/10 pain. She looks much more comfortable. Will medicate with 1 L of lactated Ringer's. Will continue to closely monitor. CTA revealing you regularly shaped makes plaques representing 80% stenosis on the right ICA, as well as irregularly shaped mix plaques representing 70% stenosis of the left ICA, no dissection, no main cerebral artery occlusion or embolus or aneurysm. Discussed with Dr. Mccloud, who recommends follow-up in the office tomorrow. No urgent intervention required. He recommends that she should be on aspirin and a statin, she was already on these medications. She does have multilevel cervical spondylosis more conspicuous at C5-C6 and C6-C7. Discussed findings with patient as well as family at bedside. Time: 15:28 Reevaluation #2: Patient feeling much better after IV fluids as well as Tylenol. She will follow-up with Dr. Mccloud tomorrow in his office. Patient stable for discharge. Medications Administered Discontinued Medications Generic Name Dose Route Start Last Admin Trade Name Phi PRN Reason Stop Dose Admin Acetaminophen 1,000 mg in 100 mls @ 400 mls/hr 12/17/24 13:48 12/17/24 15:15 Ofirmev IV 12/17/24 14:02 Infused ONCE ONE Infusion Lactated Ringer's 1,000 mls @ 999 mls/hr 12/17/24 15:45 12/17/24 16:14 Lr IV 12/17/24 16:45 999 mls/hr .Q1H1M ONE Administration Iohexol 100 ml 12/17/24 14:35 12/17/24 14:36 Iohexol 350 Mg/Ml 100 Ml Infus..Btl IV 12/17/24 14:36 70 ml ONCE ONE Administration Ondansetron HCl 4 mg 12/17/24 13:05 12/17/24 13:55 Ondansetron Hcl 4 Mg/2 Ml Vial IVPUSH 12/17/24 13:06 4 mg ONCE ONE Administration Medical Decision Making Medical Decision Making [facility] Narrative: This is a 79-year-old female, with a history of hypertension, who presents emergency department with ongoing headaches for the last month, worsening since today. On arrival, she is alert and oriented x4, she was neurologically intact with no focal deficits on examination. Patient reporting severe left-sided headache, alleviated with applying pressure to her right side of her head. Vital signs performed, within normal ranges. Differential diagnoses include trigeminal neuralgia, ICH, CVA, temporal arteritis. Will obtain labs, inflammatory markers, CT head, CTA. We will continue to closely monitor, will administer Tylenol and Zofran for symptomatic relief. Differential Diagnosis Differential Diagnoses: The differential diagnosis associated with the presentation includes See above Admission/Observation Consideration of admission/observation: Escalation of care including admission/observation considered Consult Healthcare Provider Management of the patient was discussed with: Pastry Assistant Dr. Mccloud Lab Data [facility] Lab Attestation statement: I reviewed the patient's lab results. No leukocytosis, stable H&H, chemistry with slight hyponatremia 134 12/17/24 13:27 12/17/24 13:27 Labs: Lab Results 12/17/24 12/17/24 Range/Units 13:27 14:08 WBC 6.3 (4.8-10.8) X10*3/uL RBC 4.15 L (4.20-5.50) X10*6/uL Hgb 13.5 (12.0-16.0) g/dl Hct 38.8 (37.0-47.0) % MCV 93.5 (80.0-98.0) fL MCH 32.5 (27.0-33.0) pg MCHC 34.8 (31.0-35.0) g/dl RDW 13.6 (11.0-16.0) % Plt Count 153 L (160-400) X10*3/uL MPV 10.2 (9.4-12.3) fL Immature Gran % (Auto) 0.2 (0.0-0.4) % Neut % (Auto) 59.8 (45-73) % Lymph % (Auto) 29.3 (20-40) % [place] % (Auto) 8.6 (2-11) % Eos % (Auto) 1.3 (0-4) % Baso % (Auto) 0.8 (0-2) % Lymph # (Auto) 1.8 (1.2-4.9) X10*3/uL [place] # (Auto) 0.5 (0.1-1.2) X10*3/uL Eos # (Auto) 0.1 (0.0-0.4) X10*3/uL Baso # (Auto) 0.1 (0.0-0.2) X10*3/uL Abs Immat Gran (auto) 0.01 (0.00-0.03) X10*3/uL Absolute Neuts (auto) 3.8 (2.0-8.3) x10*3/uL Absolute Nucleated RBC 0.000 (0.0-0.012) X10*3/uL Nucleated RBC % (auto) 0.0 (0.0-0.2) /100WBC ESR 6 (0-20) MM/HR PT 11.3 (10.9-12.4) SEC INR 1.0 (0.9-1.1) Sodium 134 L (135-145) mmol/L Potassium 3.3 (3.3-5.1) mmol/L Chloride 101 (96-108) mmol/L Carbon Dioxide 23 (22-29) mmol/L Anion Gap 13 (12-20) BUN 14 (9-16) mg/dL Creatinine 0.72 (0.5-1.4) mg/dL Estim Creat Clear Calc 60.7 Estimated GFR > 60 Random Glucose 94 (60-115) mg/dL Calcium 9.0 (8.4-10.2) mg/dL Magnesium 2.1 (1.6-2.6) mg/dL Total Bilirubin 0.5 (0.0-1.0) mg/dL Direct Bilirubin 0.2 (0.0-0.5) mg/dL AST 26 (5-31) U/L ALT 11 (0-31) U/L Alkaline Phosphatase 100 (39-117) U/L Total Protein 7.0 (6.5-8.0) g/dL Albumin 4.0 (3.5-5.0) g/dL Influenza Type A (PCR) NEGATIVE (Negative) Influenza Type B (PCR) NEGATIVE (Negative) RSV RNA Qual (PCR) NEGATIVE (Negative) SARS-CoV-2 RNA (RT-PCR) NEGATIVE (Negative) Independent Interpretation I performed an independent interpretation of an: EKG Interpretation: EKG AV dual paced rhythm, no ST elevation or depression. Ventricular rate of 60 beats per minute, MI interval 196, QT QTC 492/492, Radiology Impression Discussion of test interpretation with radiology: I have reviewed the radiologist's reading. Radiologist Impression: [place] [id number] CT Scan Report Signed Patient: Denice Pérez MR#: [id number] : 1945 Acct:[id number] Age/Sex: 79 / F ADM Date: 12/17/24 Loc: HO.ED Attending Dr: Ordering Physician: Gricelda Braden Date of Service: 12/17/24 Procedure(s): CT angio head neck Accession Number(s): [id number] cc: Natan Menjivar MD; Gricelda Braden~ Report Number: [id number]: Total DLP = 1435.00 mGy-cm EXAMINATION: CTA NECK WITH CONTRAST (STROKE) CTA BRAIN WITH CONTRAST (STROKE) CLINICAL INFORMATION: Headache. COMPARISON: Correlated to CT dated April 28, 2024 MRI brain dated December 23, 2022. TECHNIQUE: CT brain: Induced axial images through the brain from the skull base to the vertex using 3 mm collimation. Sagittal and coronal reformatted images acquired. CTA of the head and neck was performed in the axial plane from the mediastinum to the skull vertex using 70 mL Omnipaque 350 intravenous contrast. Additional reformatted multiplanar images including maximum intensity projection MIP images are generated on the CT workstation. No reported immediate complications. This CT examination was performed using dose optimization techniques as appropriate, variously including the following: *Automated exposure control *Adjustment of mA and/or kV according to patient size (this includes techniques or standardized protocols for targeted exams where dose is matched to indication/reason for exam; i.e. extremities or head) *Use of iterative reconstruction technique DLP: 1435 mGy centimeter. FINDINGS: The degree of stenosis determined by criteria similar to NASCET. Brain: No acute intracranial hemorrhage, mass effect, midline shift, hydrocephalus or herniation. Gregorio-white matter differentiation is normal. Posterior cranial fossa contents demonstrated no acute intracranial hemorrhage or mass effect. Sellar/suprasellar region demonstrated no acute intracranial hemorrhage. Craniocervical junction is intact demonstrated a partially calcified pannus formation in the periodontal region. Chest CTA: Calcified plaques in the aortic arch wall. Normal diameter. No focal stenosis. No intimal flap. Electrode leads in the left supraclavicular notch and a metallic reservoir in the anterior left upper chest wall. Neck CTA: Right CCA: Tortuosity. Normal patency. No focal stenosis. No intimal flap. Right ICA: Irregular mixed plaques Focal narrowing at the proximal segment representing 80% stenosis. No intimal flap. Left CCA: Normal patency. No focal stenosis. No intimal flap. Left ICA: Irregular mixed plaque. Focal 70% stenosis in the proximal segment. No intimal flap. Tortuosity. V1/V2 segments of the vertebral arteries are patent and origin in from the superior arteries with tortuosity. Left vertebral artery is dominant. No focal stenosis. No intimal flap.. Brain CTA: Anterior cerebral circulation: ICAs: Calcified plaques in the cavernous segments both ICA. No focal stenosis. No abrupt cut off. No gross irregularity in the contour. MCA's: No focal stenosis. No abrupt cut off. Bifurcation/trifurcation demonstrated no contour irregularity. ACAs: No focal stenosis. No abrupt cut off. Anterior communicating artery is patent. Ophthalmic arteries are patent. Unable to evaluate the origin secondary to bony artifact. Right posterior communicating artery is patent with small caliber. Left posterior communicating artery is not identified. Posterior cerebral circulation: V3/V4 segments demonstrated calcified plaques in the left side. No focal stenosis. No intimal flap. Left vertebral artery is dominant. Right vertebral artery ends in the right posterior inferior cerebellar artery. Basilar artery demonstrates normal patency without focal stenosis or intimal flap. Superior cerebellar arteries are patent. 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 Ancillary findings: Multilevel cervical spondylosis more conspicuous at C5-6 and C6-[address]/CT angio head neck IMPRESSION: Irregular shaped mixed plaques representing 80% stenosis, right ICA. Irregularly-shaped mixed plaques representing 70% stenosis, left ICA. No dissection. No main cerebral artery occlusion or embolus or aneurysm. Electronically signed by: Mookie Walsh MD 12/17/2024 03:[address] [facility] Dictated By: Mookie Ibarra MD Discharge Plan Discharge Clinical Impression: Atherosclerotic cardiovascular disease, Headache Patient Disposition: Home, Self-Care Instructions: Coronary Artery Disease (DC), Acute Headache (ED), General Headache (ED) Additional Instructions: You were seen in the emergency department due to a headache. We had given you Tylenol at 1:45PM this afternoon. Your labs were reassuring. You tested negative for COVID, flu, RSV. Your CT of your head and neck reveal the following: CT/CT angio head neck IMPRESSION: Irregular shaped mixed plaques representing 80% stenosis, right ICA. Irregularly-shaped mixed plaques representing 70% stenosis, left ICA. No dissection. No main cerebral artery occlusion or embolus or aneurysm. I discussed this with the vascular surgeon, Dr. Mccloud, recommends following up in the office tomorrow. Call his office today to make an appointment. If any new or worsening symptoms occur including but not limited to severe headache, dizziness, blurred vision, severe chest pain, shortness of breath, please seek emergent care. Prescriptions: No Action rosuvastatin 20 mg tablet 20 mg PO BEDTIME ergocalciferol (vitamin D2) 1,250 mcg (50,000 unit) capsule 1,250 mcg PO QWEEK metoprolol succinate 25 mg tablet extended release 24 hr 12.5 mg PO DAILY triamterene-hydrochlorothiazid 37.5-25 mg capsule 1 cap PO DAILY Adult Probiotic 3 billion cell capsule 3,000 mmu cells PO DAILY Rx Instructions: administer with a meal multivitamin Tablet 1 tab PO DAILY donepezil 5 mg tablet 5 mg PO DAILY sertraline 50 mg tablet PO DAILY memantine 10 mg tablet PO BID levothyroxine [Synthroid] 112 mcg tablet PO DAILY aspirin 81 mg tablet,delayed release (DR/EC) 81 mg PO DAILY Referrals: [facility] Vascular Services [Provider Group] Interventions: ED Discharge Assessment Last Done: 12/17/24 17:10 Discharge Date/Time: 12/17/24 17:10 Print Language: Dominican
--- NOTE | 2024-12-17 13:07 | ECG_ITS ---
Test Reason : headache Blood Pressure : */* mmHG Vent. Rate : 60 BPM Atrial Rate : 60 BPM P-R Int : 196 ms QRS Dur : 166 ms QT Int : 492 ms P-R-T Axes : * -79 89 degrees QTcB Int : 492 ms AV dual-paced rhythm Abnormal ECG When compared with ECG of 28-Apr-2024 15:10, No significant change was found Referred By: Gricelda Braden Electronically Signed By: ELIO SILVA
[2024-12-17 13:31] LABS: MANUAL DIFF FLAG NO
[2024-12-17 13:32] LABS: Basophils Absolute Auto 0.1 X10*3/uL (0.0-0.2); Basophils Percent Auto 0.8 % (0-2); Eosinophils Absolute Auto 0.1 X10*3/uL (0.0-0.4); Eosinophils Percent Auto 1.3 % (0-4); Hematocrit 38.8 % (37.0-47.0); Hemoglobin 13.5 g/dl (12.0-16.0); Imm Gran Abs Auto 0.01 X10*3/uL (0.00-0.03); Imm Gran Pct Auto 0.2 % (0.0-0.4); Lymphocytes Absolute Auto 1.8 X10*3/uL (1.2-4.9); Lymphocytes Percent Auto 29.3 % (20-40); Mean Corpuscular HGB Conc 34.8 g/dl (31.0-35.0); Mean Corpuscular Hemoglobin 32.5 pg (27.0-33.0); Mean Corpuscular Volume 93.5 fL (80.0-98.0); Mean Platelet Volume 10.2 fL (9.4-12.3); Monocytes Absolute Auto 0.5 X10*3/uL (0.1-1.2); Monocytes Percent Auto 8.6 % (2-11); Neutrophils Absolute Auto 3.8 x10*3/uL (2.0-8.3); Neutrophils Percent Auto 59.8 % (45-73); Platelet Count 153 X10*3/uL (160-400); Red Blood Count 4.15 X10*6/uL (4.20-5.50); Red Cell Distribution Width 13.6 % (11.0-16.0); White Blood Count 6.3 X10*3/uL (4.8-10.8)
[2024-12-17 13:39] LABS: Prothrombin Time 11.3 SEC (10.9-12.4)
[2024-12-17 13:50] LABS: Alanine Aminotransferase 11 U/L (0-31); Alkaline Phosphatase 100 U/L (39-117); Anion Gap 13 (12-20); Aspartate Amino Transferase 26 U/L (5-31); Bilirubin Direct 0.2 mg/dL (0.0-0.5); Bilirubin Total 0.5 mg/dL (0.0-1.0); Blood Urea Nitrogen 14 mg/dL (9-16); Carbon Dioxide 23 mmol/L (22-29); Chloride 101 mmol/L (96-108); Creatinine Clr Calc Pharmacy 60.7; Estimated Glomerular Filt Rate > 60; Glucose Random 94 mg/dL (60-115); Magnesium 2.1 mg/dL (1.6-2.6); Potassium 3.3 mmol/L (3.3-5.1); Sodium 134 mmol/L (135-145)
[2024-12-17] MEDS: Acetaminophen 1,000 MG/100 ML PIGGYBACK 400 MG IV (13:55)
[2024-12-17] MEDS: ondansetron HCL 4 MG/2 ML VIAL IVPUSH (13:55)
[2024-12-17 14:28] LABS: Influenza A PCR NEGATIVE (Negative); Influenza B PCR NEGATIVE (Negative); Resp Syncy Virus RNA Qual PCR NEGATIVE (Negative); SARS COV2 PCR INHOUSE NEGATIVE (Negative)
[2024-12-17] MEDS: iohexoL 350 MG/ML 100 ML INFUS..BTL IV (14:36)
[2024-12-17 14:56] LABS: Erythrocyte Sedimentation Rate 6 MM/HR (0-20)
[2024-12-17 15:50] VITALS: BP 153/62; PULSE 60; RESP 18; TEMP 37.3; O2SAT 98
[2024-12-17] MEDS: Lactated Ringers 1,000 ML 999 ML IV (16:14)
[2024-12-17 17:03] VITALS: BP 116/83; PULSE 60; RESP 19; O2SAT 96
[2024-12-17 17:10] VITALS: BP 116/83; PULSE 60; RESP 19; TEMP 37.3; O2SAT 96
== END 2024-12-17 17:10 | disposition home or self-care (01) ==
PROVIDERS: Physician Assistant Medical; Emergency Provider Emergency Medicine; PCP Internal Medicine
DX: I25.10 Atherosclerotic heart disease of native coronary artery without angina pectoris (principal); R51.9 Headache, unspecified; R11.0 Nausea; I48.91 Unspecified atrial fibrillation; R94.31 Abnormal electrocardiogram [ECG] [EKG]; Z03.818 Encounter for observation for suspected exposure to other biological agents ruled out; Z79.899 Other long term (current) drug therapy
CPT/HCPCS: 0241U; 36415; 70496; 70498; 80048; 80076; 83735; 85025; 85610; 85652; 93005; 96365; 96375; 99284; 99285; J0131; J2405; J7120; Q9967

== ENCOUNTER → 2024-12-17 13:05 | Outpatient (BNV) | payer MEDICARE, OTHER, SELFPAY | PROVIDERS: Emergency Provider Emergency Medicine; PCP Internal Medicine; Visit Provider Radiology Diagnostic Radiology | DX: I65.23 Occlusion and stenosis of bilateral carotid arteries (principal) | CPT/HCPCS: 70496; 70498 ==

== ENCOUNTER → 2024-12-17 13:07 | Outpatient (BNV) | payer MEDICARE, OTHER, SELFPAY | PROVIDERS: Emergency Provider Emergency Medicine; PCP Internal Medicine; Visit Provider Internal Medicine | DX: R94.31 Abnormal electrocardiogram [ECG] [EKG] (principal); Z95.0 Presence of cardiac pacemaker | CPT/HCPCS: 93010 ==

== ENCOUNTER 2024-12-18 13:40 | Outpatient (AMB) | payer MEDICARE, OTHER, SELFPAY ==
--- NOTE | 2024-12-18 13:41 | A.OFFVIS_ITS ---
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 Cleaner And Preparer Required: No Accompanied by: Family/Other Allergies latex Allergy (Unknown, Verified 12/18/24 13:46) UNK. 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 Symptoms began with severe headaches and nausea, prompting a visit to the ER yesterday where a stroke workup was performed, revealing 80% stenosis in the left carotid artery and 70% in the right carotid artery. The patient has no history of smoking or diabetes, though she does have a family history of cardiovascular disease. She is currently on rosuvastatin for cholesterol management. Her daily activities involve caring for horses, which she continues despite her symptoms. She now presents for vascular evaluation regarding carotid disease. Of note she is on an aspirin and statin. REPLACED BY [facility] Medical History Heart block atrioventricular Abnormal LFTs Normally functioning cardiac pacemaker present Atherosclerotic cardiovascular disease Surgical History History of permanent cardiac pacemaker placement (~2019) Family History Father Rheumatic fever Mother History of coronary artery bypass graft x 3 History of pacemaker Congestive heart failure Social History Alcohol intake: current Alcohol intake frequency: holidays/special occasions only Patient Tobacco Use Status: Never used Tobacco Review of Systems Const All systems reviewed & are unremarkable except as noted in HPI and below Reports no additional complaints ENT Reports Normal hearing present Card Denies chest pain, Denies chest pain at rest, Denies chest pain with activity and Denies pedal edema Resp Denies cough GI Denies abdominal pain Musc Denies abnormal gait, Denies muscle cramps and Denies radiating pain into limb Skin/Breast Denies skin ulcer and Denies wounds Neuro Reports Normal hearing present and Denies abnormal gait Psych Reports no additional complaints Physical Exam Vital Signs: Last Vital Signs BP 88/46 L 12/18/24 13:53 Const General: cooperative, healthy appearing and comfortable Orientation/consciousness: oriented to person, oriented to place and oriented to time HEENT Head: Yes normal to inspection Neck Neck: Yes normal visual inspection Carotids: no bruits Chest Chest palpation & inspection: normal inspection of the chest Resp Effort & Inspection: normal respiratory effort and able to speak in complete sentences Auscultation: clear to auscultation bilaterally, no crackles, no rales, no rhonchi and no wheezes Cardio Rate: regular rate Rhythm: regular rhythm Heart sounds: S1 normal heart sound present and S2 normal heart sound present Bruits: no carotid bruits Peripheral pulses: Peripheral pulses 2+ throughout GI Inspection: Yes normal to inspection Skin Wounds: no wounds Hair: normal Neuro General: oriented to person, oriented to place and oriented to time Cranial nerves: Yes CN's II-XII intact bilaterally and Yes Normal hearing present Cognition (Neuro): normal cognition Motor exam (neuro): 5/5 motor strength present throughout Extrem Other: venous exam: No significant superficial varicosities or spider telangiectasias, minimal edema General: No clubbing, No cyanosis and No edema Psych Appearance: grossly normal Mental Status: mental status grossly normal Speech and movement: Normal speech and movement present Results Reviewed Results Reviewed: CT angiogram dated 12/17/2024 demonstrates right carotid stenosis of 80% and left carotid stenosis of 70%. Written report and images were reviewed. Assessment & Plan Assessment & Plan (1) Carotid stenosis, right: Code(s): I65.21 - Occlusion and stenosis of right carotid artery Category: Medical Plan: I discussed with the patient the diagnosis of carotid artery stenosis and the need for surgical intervention to prevent stroke. The planned procedure, right carotid endarterectomy, was explained, emphasizing its goal of preventing a cerebrovascular event. Risks benefits complications were discussed in detail including but not limited to bleeding infection stroke and . Detailed procedural information, including incision size, plaque removal, and post- operative expectations, was provided. Risks associated with the surgery, such as a 2-3% stroke risk, and the benefits were addressed. I conveyed the necessity for cardiovascular risk stratification by Dr. Mahmood before surgery. We ensured the patient understood the course of treatment, possible outcomes, and follow-up protocols. She will be scheduled as soon as possible. Thank you for allowing us to assist in her care. If there are any questions or concerns please do not hesitate to contact us. Coding Level of Care Code New Pt Level 4 (36676) Complex EM visit Add On G2211 Diagnoses Carotid stenosis, right I65.21
[2024-12-18 13:52] VITALS: BP 96/48
[2024-12-18 13:53] VITALS: BP 88/46
== END 2024-12-18 14:26 | disposition home or self-care (01) ==
PROVIDERS: PCP Internal Medicine; Visit Provider Surgery Vascular Surgery
DX: I65.21 Occlusion and stenosis of right carotid artery (principal)
CPT/HCPCS: 99204; G2211

== ENCOUNTER → 2024-12-18 13:40 | Outpatient (BNVA) | payer MEDICARE, OTHER, SELFPAY | PROVIDERS: PCP Internal Medicine; Visit Provider Surgery Vascular Surgery | DX: I65.21 Occlusion and stenosis of right carotid artery (principal) | CPT/HCPCS: 99202 ==

== ENCOUNTER 2024-12-25 15:09 | Outpatient (AMB) | payer MEDICARE, OTHER, SELFPAY ==
[2024-12-25 15:03] VITALS: BMI 24.9
--- NOTE | 2024-12-25 15:03 | A.OFFVIS_ITS ---
Vital Signs 12/25/24 15:03 Height 5 ft 4 in Weight 145 lb BMI 24.9 Intake Visit Reasons: Per HS Allergies latex Allergy (Unknown, Verified 12/18/24 13:46) UNK. Medication List - Last Reconciled 12/25/24 by Keegan Mahmood MD aspirin 81 mg PO DAILY donepezil 5 mg PO DAILY ergocalciferol (vitamin D2) 1,250 mcg PO QWEEK lactobacillus combination no.8 (Adult Probiotic) 3,000 mmu cells PO DAILY levothyroxine (Synthroid) mcg PO DAILY memantine mg PO BID metoprolol succinate ER 25 mg PO DAILY multivitamin 1 tab PO DAILY rosuvastatin 20 mg PO BEDTIME sertraline mg PO DAILY triamterene-hydrochlorothiazid 37.5-25 mg 1 cap PO DAILY HPI Comments Details: This is a tele health visit regarding preoperative risk stratification for carotid surgery. Per patient, she suddenly felt weak and then had headaches and nausea and that led to ER visit. She underwent workup for stroke. Underwent CTA which showed 80% stenosis in the right internal carotid artery and 70% stenosis in the left internal carotid artery. She has seen vascular surgery and there is recommendation for right carotid endarterectomy. However, patient is requesting possibly 2nd opinion before she would proceed. 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 Then had complaints of chest tightness leading to cardiac catheterization and LAD stenting. She takes triamterene / HCTZ for edema. From cardiac, no new concerns otherwise. No clear angina. [facility] Medical History Heart block atrioventricular Abnormal LFTs Normally functioning cardiac pacemaker present Atherosclerotic cardiovascular disease Surgical History History of permanent cardiac pacemaker placement (~2019) Family History Father Rheumatic fever Mother History of coronary artery bypass graft x 3 History of pacemaker Congestive heart failure Social History Alcohol intake: current Alcohol intake frequency: holidays/special occasions only Patient Tobacco Use Status: Never used Tobacco Review of Systems Const Denies weakness ENT Denies dizziness Card Denies chest pain, Denies chest pain with activity, Denies syncope, Denies rapid heart rate, Denies pedal edema, Denies edema, Denies leg edema, Denies lightheadedness, Denies palpitations, Denies dyspnea, Reports dyspnea on exertion and Denies orthopnea Resp Denies cough, Denies dyspnea and Reports dyspnea on exertion GI Denies hematochezia and Denies change in stool character Musc Denies abnormal gait, Denies muscle cramps, Denies muscle weakness, Denies numbness, Denies radiating pain into limb and Denies tingling Neuro Denies abnormal gait, Denies dizziness, Denies syncope, Denies numbness, Denies tingling and Denies weakness Endo Denies palpitations Physical Exam Vital Signs: BMI result Body Mass Index 24.9 Telehealth Telehealth Telehealth Platform: Telephone Location of provider rendering services: practice address Location of patient: address on file Patient Identification confirmed using: Name, : Yes Telehealth method: voice only Patient verbally consented to treatment: Yes Patient verbally consented to billing insurance company: Yes Patient informed of any privacy concerns related to visit: Yes Minutes spent on Phone/Video with Pt.: 15 Assessment & Plan Assessment & Plan (1) Preoperative cardiovascular examination: Code(s): Z01.810 - Encounter for preprocedural cardiovascular examination Category: Medical Plan: Recommend myocardial perfusion imaging study and will get that set up in the near future. Patient has already been seen by vascular surgery, but requesting 2nd opinion. To see [facility] vascular surgery. (2) Atherosclerotic cardiovascular disease: Code(s): I25.10 - Atherosclerotic heart disease of [place] coronary artery without angina pectoris Category: Medical Plan: Status post LAD stenting. She remains on aspirin, low-dose beta-blockers and statins. Last LDL 64 mg/dL. Triglycerides 80 mg/dL. (3) Atrial arrhythmia: Code(s): I49.8 - Other specified cardiac arrhythmias Category: Medical Plan: Brief atrial fibrillation noted on pacemaker remote monitoring in the past for about 32 seconds. No recurrence. May follow on remote pacemaker checkup. (4) Essential hypertension: Code(s): I10 - Essential (primary) hypertension Category: Medical Plan: Stable. No changes. Orders: Orders NM cardiolite stress test Today R07.2 - Precordial pain, Z01.810 - Encounter for preprocedural cardiovascular examination CA lexiscan stress w john Today I20.9 - Angina pectoris, unspecified, Z01.810 - Encounter for preprocedural cardiovascular examination Coding Level of Care Code Tele Est Pt Level 4 (48530) Complex EM visit Add On G2211 Diagnoses Preoperative cardiovascular examination Z01.810 Atherosclerotic cardiovascular disease I25.10 Atrial arrhythmia I49.8 Essential hypertension I10
== END 2024-12-25 15:32 | disposition home or self-care (01) ==
LOC: HO.HCS 15:09
PROVIDERS: PCP Internal Medicine; Visit Provider Internal Medicine
DX: I11.9 Hypertensive heart disease without heart failure (principal); I25.10 Atherosclerotic heart disease of native coronary artery without angina pectoris; I49.8 Other specified cardiac arrhythmias; Z01.810 Encounter for preprocedural cardiovascular examination
CPT/HCPCS: 99214; G2211

== ENCOUNTER → 2025-01-28 23:59 | Outpatient (BNV) | payer MEDICARE, OTHER, SELFPAY ==
--- NOTE | 2025-01-29 14:16 | MHC.OFFVIS ---
Intake Visit Reasons: Remote device check- [facility] Allergies latex Allergy (Unknown, Verified 12/18/24 13:46) UNK. [facility] Medical History Heart block atrioventricular Abnormal LFTs Normally functioning cardiac pacemaker present Atherosclerotic cardiovascular disease Surgical History History of permanent cardiac pacemaker placement (~2019) Family History Father Rheumatic fever Mother History of coronary artery bypass graft x 3 History of pacemaker Congestive heart failure Social History Alcohol intake: current Alcohol intake frequency: holidays/special occasions only Patient Tobacco Use Status: Never used Tobacco Office Procedures Cardiac Device Check Cardiac Device Check Details: Date of service- 01/28/2025 ; Battery life >3 years; normal lead parameters; AP 46%; PROFESSOR 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 Overall normal device function. [id number] Cardiac Device Interrogation, pacemaker Procedure code (CPT) selection complete Assessment & Plan Assessment & Plan (1) Normally functioning cardiac pacemaker present: Code(s): Z95.0 - Presence of cardiac pacemaker Category: Medical (2) Heart block atrioventricular: Code(s): I44.30 - Unspecified atrioventricular block Category: Medical (3) Atrial arrhythmia: Code(s): I49.8 - Other specified cardiac arrhythmias Category: Medical Plan x Coding Level of Care Code Procedure Only Diagnoses Normally functioning cardiac pacemaker present Z95.0 Heart block atrioventricular I44.30 Atrial arrhythmia I49.8 CPT Codes Cardiac Device Check - Cardiac Device 12: [id number] Cardiac Device Interrogation, pacemaker ([id number])
== END ==
PROVIDERS: PCP Internal Medicine; Visit Provider Internal Medicine
DX: I44.30 Unspecified atrioventricular block (principal); I49.8 Other specified cardiac arrhythmias; Z95.0 Presence of cardiac pacemaker
CPT/HCPCS: 93294

== ENCOUNTER → 2025-04-29 23:59 | Outpatient (BNV) | payer MEDICARE, OTHER, SELFPAY ==
--- NOTE | 2025-05-07 20:43 | A.OFFVIS_ITS ---
Intake Visit Reasons: Remote device check- [facility] Allergies latex Allergy (Unknown, Verified 12/18/24 13:46) UNK. [facility] Medical History Heart block atrioventricular Abnormal LFTs Normally functioning cardiac pacemaker present Atherosclerotic cardiovascular disease Surgical History History of permanent cardiac pacemaker placement (~2019) Family History Father Rheumatic fever Mother History of coronary artery bypass graft x 3 History of pacemaker Congestive heart failure Social History Alcohol intake: current Alcohol intake frequency: holidays/special occasions only Patient Tobacco Use Status: Never used Tobacco Office Procedures Cardiac Device Check Cardiac Device Check Details: Date of service- 04/29/2025 ; Battery life >3 years; normal lead parameters; AP 52%; 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 Overall normal device function. [id number] Cardiac Device Interrogation, pacemaker Procedure code (CPT) selection complete Assessment & Plan Assessment & Plan (1) Normally functioning cardiac pacemaker present: Code(s): Z95.0 - Presence of cardiac pacemaker Category: Medical (2) Heart block atrioventricular: Code(s): I44.30 - Unspecified atrioventricular block Category: Medical Plan x Coding Level of Care Code Procedure Only Diagnoses Normally functioning cardiac pacemaker present Z95.0 Heart block atrioventricular I44.30 CPT Codes Cardiac Device Check - Cardiac Device 12: [id number] Cardiac Device Interrogation, pacemaker ([id number])
== END ==
PROVIDERS: PCP Internal Medicine; Visit Provider Internal Medicine
DX: I44.30 Unspecified atrioventricular block (principal); Z95.0 Presence of cardiac pacemaker
CPT/HCPCS: 93294

== ENCOUNTER 2025-05-27 12:25 | Outpatient (AMB) | payer MEDICARE, OTHER, SELFPAY ==
--- OUTSIDE RECORDS SUMMARY | 2025-05-23 11:30 | XMS_ITS | Encounter Summary ---
Author Organization [facility] Address [address] [place] [phone] Phone Care Team Providers Care Accounts Receivable Specialist Name Role Phone Natan Menjivar MD Primary Care Provider [phone] Reason for Visit * Speech Therapy (Within 2 weeks) - Authorized Specialty Diagnoses / Procedures Referred By Mely t Referred To Contact Speech Pathology Diagnoses Word finding difficulty Joon Henson DO Phone: tel: fax: [email or web address] [address] [address] Phone: tel: Referral ID Status Reason Start Date Expiration Date V isits Requested Visits Authorized [id number] Authorized 08/23/2024 08/23/2025 99 99 Encounter Details Date Type Department Care Team (Latest Contact Info) Description 05/23/2025 11:30 AM EDT Office Visit [facility] [address] [place] [address] [place] [address] Dorene Vazquez CCC-LAC[facility]ER SH[facility]ER [address] [place] [address] Word finding difficulty (Primary Dx); Cognitive communication deficit Social History Tobacco Use Types Packs/Day Years Used Date Smoking Tobacco: Never Smokeless Tobacco: Never Alcohol Use Standard Drinks/Week Comments Yes 4 (1 standard drink = 0.6 oz pur e alcohol) Education Answer Date Recorded Are you interested in more education? Not on andria e 02/19/2023 Are you concerned about learning? Not on file 02/19/2023 No 02/19/2023 No 02/19/2023 Digital Access Answer Date Recorded No 03/18/2023 No 03/18/2023 Reliable internet access at home? Not on file 03/18/2023 Device with a working camera? Not on file Comments No Sex and Gender Information Value Date Recorded Sex Assigned at Not on file Legal Sex Female 5:06 PM EST Gender Identity Not on file Sexual Orientation Not on file documented as of this encounter Progress Notes * Dorene Vazquez, [facility]-LACQUER SHADER - 05/23/2025 11:30 AM EDT Speech-Language Pathology Treatment Note Subject Line: Treatment Note Patient Name: Denice Pérez Date of : 1945 Referring MD: Joon Henson DO [address] [place] [id number] Patient was seen for a Speech Pathology visit on 05/23/2025. Subjective Comments: Treatment Plan: GOAL (Short Term): 1. Complete diagnostics in 2-3 sessions 2. Pt will demonstrate ability to complete assignments for home cognitive linguistic stimulation with Supervision. 3. Pt will complete basic/moderate word retrieval and verbal reasoning exercises with min external assist for use of strategies. 4. Pt will use memory tools and strategies for daily living skills with Supervision OUTCOME (Fdc): 1. Pt will demonstrate ability to maximize cognitive /communication effectiveness through use of strategies and devices at the Supervision level. Patient Stated Goal: Find words better PLAN Frequency and Duration: Patient will be seen 1times per week for 12 weeks. completion of diagnostics (RBANS; selected subtests of BDAE) Receptive and expressive langage preservation and stimulation exercises; word retrieval strategy training; cognitive linguistic strategytrainng; family training, HEP Verbal/visual supports Objective Information: 1. Complete diagnostics in 2-3 sessions MET Results of testing were reviewed. Pt does make commentsthat she wants to get better. LACQUER SHADER reinforced that the goal is to teach her strategies for managing her deficits toward improved communication and that her deficits may lessen through therapy but are not likely to go away. 2. Pt will demonstrate ability to complete assignments for home cognitive linguistic stimulation with Supervision.: n/a today 3. Pt will complete basic/moderate word retrieval and verbal reasoning exercises with min external assist for use of strategies. :Pt participated in [employer] programs: Root it Out and Split Words. Root It Out: Pt required mod/max assist for using roots of a word to generate 4 letter words. Memory interference was frequent (e.g.saying the same word multiple times). She responded to semanticallybased cues of descriptors or contextual references. She did not respond as well to phonemic cues but the words were also more obscure. Split Words: Pt performed at Levels 3 and 4 with 100% accuracy with min assist (redirecting for memory lapse of directions; some semantic cues). Pt used touch screen with minimal need for redirection. 4. Pt will use memory tools and strategies for daily living skills with Supervision: Pt has not started to journal again but intends to. Assessment: Pt is a very motivated and eager participant. Her short term memory does interfere with new learning of tasks and retaining strategies but she benefits from repetitions. Plan: Continue with goals as per treatment plan. Dorene Vazquez CCC-LACQUER SHADER documented in this encounter Plan of Treatment Upcoming Encounters Date Type Department Care Team (Late st Contact Info) Description 06/06/2025 1:00 PM EDT Office Visit [facility] [address] [place] [address] [place] [address] Joon Henson, DO [address] [place] [address] [email or web address] Dorene Vazquez CCC[facility] [address] [place] [address] 06/11/2025 1:00 PM EDT Office Visit [facility] [address] [place] [address] Joon Henson, [place] [address] Dorene Vazquez CCC-[facility] [address] [place] [address] 07/04/2025 11:30 AM EDT Office Visit [address] [address] Joon Henson, [place] [address] Dorene Vazquez CCC-[facility] [address] [place] [address] 07/10/2025 11:30 AM EDT Office Visit [facility] [address] [place] [address] Joon Henson, [place] [address] Dorene Vazquez CCC-[facility] [address] [place] [address] 07/19/2025 11:30 AM EDT Office Visit [facility] [address] [place] [address] Joon Henson, [place] [address] Dorene Vazquez CCC[facility] [address] [place] [address] 07/22/2025 11:30 AM EDT Office Visit [facility] [address] [place] [address] Joon Henson, [place] [address] Dorene Vazquez CCC-[facility] [address] [place] [address] 07/29/2025 11:30 AM EDT Office Visit [facility] [address] [place] [address] Joon Henson, [place] [address] Dorene Vazquez CCC[facility] [address] [place] [address] 08/06/2025 10:30 AM EDT Office Visit [facility] [address] [place] [address] Joon Henson, [place] [address] Dorene Vazquez CCC-[facility] [address] [place] [address] 08/13/2025 10:30 AM EDT Office Visit [facility] [address] [place] [address] Joon Henson, [place] [address] Dorene Vazquez CCC-[facility] [address] [place] [address] documented as of this encounter Visit Diagnoses Diagnosis Word finding difficulty- Primary Cognitive communication deficit documented in this encounter Additional Health Concerns Assessment Noted Time PHQ-9 Depression Total Score: 3 03/29/20 24 10:29 AM EDT PHQ-2 Depression Total Score: 0 03/29/20 10:29 AM EDT documented as of this encounter Care Teams Accounts Receivable Specialist Relationship Specialty Start Date End Date Natan Menjivar MD [address] [place] [address] PCP - General Internal Medicine 03/13/25 documented as of this encounter Additional Source Comments The information contained in this document represents components of the legal health record. It is not the complete legal health record.[facility]
--- NOTE | 2025-05-27 13:10 | MHC.OFFVIS ---
Vital Signs 05/27/25 13:11 Height 5 ft 4 in Weight 143 lb 4.807 oz BMI 24.6 BP 124/64 Blood Pressure Location Lt brachial Position Sitting Pulse 60 Pulse Source Pulse Oximeter Intake Visit Reasons: 6 + wk fu w/ pacer check Allergies latex Allergy (Unknown, Verified 12/18/24 13:46) UNK. Medication List - Last Reconciled 05/27/25 by Keegan Mahmood MD aspirin 81 mg PO DAILY donepezil 5 mg PO DAILY ergocalciferol (vitamin D2) 1,250 mcg PO QWEEK lactobacillus combination no.8 (Adult Probiotic) 3,000 mmu cells PO DAILY levothyroxine (Synthroid) mcg PO DAILY memantine mg PO BID metoprolol succinate ER 25 mg PO DAILY multivitamin 1 tab PO DAILY rosuvastatin 20 mg PO BEDTIME sertraline mg PO DAILY triamterene-hydrochlorothiazid 37.5-25 mg 1 cap PO DAILY HPI Comments Details: Denice returns for follow-up regarding coronary artery disease as well as pacemaker. Overall, she states she feels well. No cardiac complaints whatsoever. 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 Then had complaints of chest tightness leading to cardiac catheterization and LAD stenting. She takes triamterene / HCTZ for edema. There was a question if she needs carotid endarterectomy but it seems that she saw [facility] vascular surgery who recommended just monitoring for now. [facility] Medical History Heart block atrioventricular Abnormal LFTs Normally functioning cardiac pacemaker present Atherosclerotic cardiovascular disease Surgical History History of permanent cardiac pacemaker placement (~2019) Family History Father Rheumatic fever Mother History of coronary artery bypass graft x 3 History of pacemaker Congestive heart failure Social History Alcohol intake: current Alcohol intake frequency: holidays/special occasions only Patient Tobacco Use Status: Never used Tobacco Review of Systems Const Denies weakness ENT Denies dizziness Card Denies chest pain, Denies chest pain with activity, Denies syncope, Denies rapid heart rate, Denies pedal edema, Denies edema, Denies leg edema, Denies lightheadedness, Denies palpitations, Denies dyspnea, Denies dyspnea on exertion and Denies orthopnea Resp Denies cough, Denies dyspnea and Denies dyspnea on exertion GI Denies hematochezia and Denies change in stool character Musc Denies abnormal gait, Denies muscle cramps, Denies muscle weakness, Denies numbness, Denies radiating pain into limb and Denies tingling Neuro Denies abnormal gait, Denies dizziness, Denies syncope, Denies numbness, Denies tingling and Denies weakness Endo Denies palpitations Physical Exam Vital Signs: Last Vital Signs Pulse 60 05/27/25 13:11 BP 124/64 05/27/25 13:11 BMI result Body Mass Index 24.6 Const General: comfortable and no acute distress Orientation/consciousness: patient oriented x3 HEENT Other: Unremarkable Head: Yes normal to inspection Neck Neck: Yes normal visual inspection Chest Chest palpation & inspection: normal inspection of the chest Resp Auscultation: clear to auscultation bilaterally Cardio Palpation: normal PMI Heart sounds: S1 normal heart sound present, S2 normal heart sound present, no gallops, no murmurs and no rubs GI Palpation (GI): Soft to palpation Back/Spine/Pelvis Other: unremarkable Skin General skin exam: no rashes or lesions noted Neuro General: patient oriented x3 Extrem General: Yes normal to inspection Psych Mental Status: mental status grossly normal Office Procedures Cardiac Device Check Cardiac Device Check Details: Pacemaker interrogated today. Dual-chamber device, programmed DDD. Battery status 3.6 years. Normal lead parameters. Atrial pacing 57%. Ventricular pacing > 99%. About 36 seconds episode of atrial fibrillation. Overall, normal device function. [id number] Cardiac Device Check, pacemaker dual lead Procedure code (CPT) selection complete Assessment & Plan Assessment & Plan (1) Atherosclerotic cardiovascular disease: Code(s): I25.10 - Atherosclerotic heart disease of [place] coronary artery without angina pectoris Category: Medical Plan: Status post LAD stenting. She remains on aspirin, low-dose beta-blockers and statins. Last available LDL 64 mg/dL. Triglycerides 80 mg/dL. (2) Atrial arrhythmia: Code(s): I49.8 - Other specified cardiac arrhythmias Category: Medical Plan: She has had 2 very brief episodes-32 seconds and 36 seconds, years apart. May continue to monitor. (3) Essential hypertension: Code(s): I10 - Essential (primary) hypertension Category: Medical Plan: Stable. No changes. (4) Carotid stenosis: Code(s): I65.29 - Occlusion and stenosis of unspecified carotid artery Category: Medical Plan: Per [facility] vascular surgery notes, plan is to just monitor for now. Plan Discussion Notes During the consultation, I discussed with the patient the importance of regular monitoring of her carotid artery stenosis through biannual scans to detect any changes early. We reviewed her current medications, metoprolol and aspirin, and their role in managing her cardiovascular health. I emphasized the benefits of maintaining her active lifestyle, which supports her overall well-being. Patient was informed and verbally consented to the use of an ambient scribe for clinic note documentation during this visit. Patient Instructions: - Continue taking metoprolol and aspirin as prescribed. - Attend scheduled scans with vascular surgery to monitor carotid artery stenosis. - Continue an active lifestyle with activities like horse riding, but be careful. Coding Level of Care Code Est Pt Level 4 (76511) Complex EM visit Add On G2211 Diagnoses Atherosclerotic cardiovascular disease I25.10 Atrial arrhythmia I49.8 Essential hypertension I10 Carotid stenosis I65.29 CPT Codes Cardiac Device Check - Cardiac Device 2: [id number] Cardiac Device Check, pacemaker dual lead ([id number])
[2025-05-27 13:11] VITALS: BP 124/64; PULSE 60; BMI 24.6
== END 2025-05-27 13:33 | disposition home or self-care (01) ==
LOC: HO.HCS 12:25
PROVIDERS: PCP Internal Medicine; Visit Provider Internal Medicine
DX: I25.10 Atherosclerotic heart disease of native coronary artery without angina pectoris (principal); I49.8 Other specified cardiac arrhythmias; I10 Essential (primary) hypertension; I65.29 Occlusion and stenosis of unspecified carotid artery
CPT/HCPCS: 93280; 99214; G2211

== ENCOUNTER → 2025-05-27 12:25 | Outpatient (BNVA) | payer MEDICARE, OTHER, SELFPAY | PROVIDERS: PCP Internal Medicine; Visit Provider Internal Medicine | DX: I25.10 Atherosclerotic heart disease of native coronary artery without angina pectoris (principal); I10 Essential (primary) hypertension; I65.29 Occlusion and stenosis of unspecified carotid artery; I49.8 Other specified cardiac arrhythmias | CPT/HCPCS: 93280; 99212 ==

== ENCOUNTER → 2025-07-29 23:59 | Outpatient (BNV) | payer MEDICARE, OTHER, SELFPAY ==
--- NOTE | 2025-08-06 19:23 | A.OFFVIS_ITS ---
Intake Visit Reasons: Remote device check- [facility] Allergies latex Allergy (Unknown, Verified 12/18/24 13:46) UNK. [facility] Medical History Heart block atrioventricular Abnormal LFTs Normally functioning cardiac pacemaker present Atherosclerotic cardiovascular disease Surgical History History of permanent cardiac pacemaker placement (~2019) Family History Father Rheumatic fever Mother History of coronary artery bypass graft x 3 History of pacemaker Congestive heart failure Social History Alcohol intake: current Alcohol intake frequency: holidays/special occasions only Patient Tobacco Use Status: Never used Tobacco Office Procedures Cardiac Device Check Cardiac Device Check Details: Date of service- 07/29/2025 ; Battery life >3 years; normal lead parameters; AP 61%; [employer] >99%; no significant arrhythmias. Overall normal device function. [id number] Cardiac Device Interrogation, pacemaker Procedure code (CPT) selection complete Assessment & Plan Assessment & Plan (1) Normally functioning cardiac pacemaker present: Code(s): Z95.0 - Presence of cardiac pacemaker Category: Medical (2) Heart block atrioventricular: Code(s): I44.30 - Unspecified atrioventricular block Category: Medical Plan x Coding Level of Care Code Procedure Only Diagnoses Normally functioning cardiac pacemaker present Z95.0 Heart block atrioventricular I44.30 CPT Codes Cardiac Device Check - Cardiac Device 12: [id number] Cardiac Device Interrogation, pacemaker ([id number])
== END ==
PROVIDERS: PCP Internal Medicine; Visit Provider Internal Medicine
DX: I44.30 Unspecified atrioventricular block (principal); Z95.0 Presence of cardiac pacemaker
CPT/HCPCS: 93294